=== PATIENT | female | born 1950 | race Caucasian/White ===

== ENCOUNTER 2022-04-18 21:28 | Emergency (ER) | payer MEDICARE, OTHER, SELFPAY ==
[2022-04-18 21:45] VITALS: BP 136/77; PULSE 71; RESP 18; TEMP 36.8; O2SAT 99; BMI 25.1
[2022-04-18] MEDS: COCAINE HCL 4 % 4 ML SOLUTION NOSTRIL-B (22:30)
[2022-04-18 23:36] VITALS: BP 128/78; PULSE 74; RESP 18; TEMP 36.8; O2SAT 99
[2022-04-18 23:37] VITALS: BP 128/78; PULSE 74; RESP 18; TEMP 36.8
--- NOTE | 2022-04-19 10:45 | ED_ITS ---
History of Present Illness General Chief Complaint: Epistaxis/Nosebleed Stated Complaint: nose bleed Time Seen by Provider: 04/18/22 21:47 History of Present Illness HPI Narrative: 71-year-old woman presenting to the emergency department with concern of nose bleed. She is accompanied by her spouse. She is not feeling lightheaded or nauseated. This is distressful as this is I believe about the 5th nosebleed she has had since [place]. Second today and just keeps coming. Apparently from the right naris but has bled from the left once she plugged the right. She has tried pressure with a nose clamp and does not seem to help. Denies trauma. Denies bleeding problems. She is not anticoagulated beyond aspirin. Also takes rosuvastatin. Sneezing apparently set her off and bleeding again. Related Data Home Medications Medication Instructions Recorded Confirmed aspirin 81 mg capsule 81 mg PO DAILY 04/18/22 04/18/22 rosuvastatin 10 mg tablet 10 mg PO HS 04/18/22 04/18/22 Allergies Allergy/AdvReac Type Severity Reaction Status Date / Time cephalexin [From Keflex] Allergy Mild Hives Verified 04/18/22 21:46 Review of Systems Status of ROS: Reports: 6 or more systems reviewed and unremarkable except as noted in History and below [facility] Medical History Hyperlipidemia Osteoporosis Surgical History History of section History of tonsillectomy and adenoidectomy Social History Smoking Status: Never smoker Second hand tobacco smoke exposure: No How often do you have a drink containing alcohol: never How often do you have six or more drinks on one occasion: Never AUDIT-C Alcohol total score: 0 Non-prescribed substance use: denies use Exam Narrative: Exam Narrative: Pleasant. Direct. Has bloodied cloths that is holding to her nose. Cranial nerves 2-12 look to be intact. She is breathing easily. There is no stridor. Neck is supple with trachea midline. Oropharynx with some trace blood in the far posterior oropharynx. Removal of dressings reveals bleeding from the right nares fairly briskly. Left does not appear to be the source of bleed. Heart is regular rate Appears well perfused peripherally. Const: Vital Signs, click to edit/add: Vital Signs - 24 hr 04/18/22 21:45 04/18/22 23:36 04/18/22 23:37 Temperature 98.2 F 98.2 F 98.2 F Pulse Rate [Right Pulse Oximeter] 71 74 74 Respiratory Rate 18 18 18 Blood Pressure [Ri ght Upper Arm] 136/77 128/78 128/78 Pulse Oximetry 99 99 Oxygen Delivery Me thod Room Air Room Air Documenting provider has reviewed patient's vital signs: yes Course Vital Signs Vital signs: Initial Vital Signs Temperature 98.2 F 04/18/22 21:45 Temperature Source Temporal Artery Scan 04/18/22 21:45 Pulse Rate 71 04/18/22 21:45 Respiratory Rate 18 04/18/22 21:45 Blood Pressure 136/77 04/18/22 21:45 Blood Pressure Mean 96 04/18/22 21:45 Blood Pressure Position Sitting 04/18/22 21:45 Pulse Oximetry 99 04/18/22 21:45 Oxygen Delivery Method 04/18/22 21:45 Vital Signs Temperature 98.2 F 04/18/22 21:45 Pulse Rate 71 04/18/22 21:45 Respiratory Rate 18 04/18/22 21:45 Blood Pressure 136/77 04/18/22 21:45 Pulse Oximetry 99 04/18/22 21:45 Oxygen Delivery Method 04/18/22 21:45 Temperature 98.2 F 04/18/22 23:37 Pulse Rate 74 04/18/22 23:37 Respiratory Rate 18 04/18/22 23:37 Blood Pressure 128/78 04/18/22 23:37 Pulse Oximetry 99 04/18/22 23:36 Oxygen Delivery Method 04/18/22 23:36 MDM - Epistaxis MDM Narrative Medical decision making narrative: I place 2 small cotton balls in the right nares and 1 in the left. Depart to collect supplies intended other matters. Later alerted to the fact that the right outermost cotton ball has dislodged. She then begins to bleed a little bit more in posterior oropharynx. I suspect still would be unable to obtain good visualization. Remove cotton balls and damp new ones in liquid cocaine. Placed as before. Reports that bleeding seems to have ?mostly? stopped. Is not demonstrating any active bleeding in the throat and removal of cotton balls does not reveal any active bleeding in the nares. There is in the right septum general evidence of some irritation more in the mid septum. In the anterior aspect along the septum is a small point of apparent vascular disruption. Heaped up. The left nares looks unremarkable. I apply silver nitrate stick to this vascularity in attempt at cautery. Looks to be settled well. Monitored for 15-20 minutes without further bleeding. Discharge Plan Discharge Clinical Impression: Epistaxis Patient Disposition: Home w/ Parent or Adult Condition: Improved Additional Instructions: After a couple of days might start placing white petroleum jelly as discussed. Stay well-hydrated. If recurs, go ahead and place cotton balls as done here and apply some pressure. Sometimes icing is helpful too. If can not get control in an hour, or if bleeding much more intensely, please return. Yes do try to avoid sneezing in the short term as discussed. Certainly avoid any trauma internal or otherwise, especially in the short term. Consider sleeping under the mist of a cool mist humidifier or otherwise generally increasing humidity in your home. Prescriptions: No Action rosuvastatin 10 mg tablet 10 mg PO HS Label Comments: TAKE 1 TABLET (10MG) BY MOUTH AT BEDTIME. aspirin 81 mg capsule 81 mg PO DAILY Follow Up/Referrals: Rehana Pandya MD [Primary Care Provider] - Stand Alone Forms: [facility] Info Instructions Procedures Epistaxis Control Time Out Performed: No Nostril: Yes right Nose prepped with: Yes cocaine 4% Direct inspection: Yes anterior source identified Direct inspection method: Yes otoscope Epistaxis treatment: Yes silver nitrate cautery Results of treatment: Yes bleeding controlled Estimated blood loss (if any): less than 5mls Complications: Yes none Conclusion: patient tolerated procedure
== END 2022-04-18 23:38 | disposition home or self-care (01) ==
PROVIDERS: Emergency Provider Family Medicine; PCP Family Medicine
DX: R04.0 Epistaxis (principal)
CPT/HCPCS: 30901; 99283; A9270

== ENCOUNTER 2023-03-30 08:10 | Outpatient (RCR) | payer MEDICARE, OTHER, SELFPAY | END 2023-04-27 11:38 | disposition home or self-care (01) | PROVIDERS: PCP Family Medicine; Visit Provider Family Medicine | DX: R42 Dizziness and giddiness (principal); R26.89 Other abnormalities of gait and mobility; M17.12 Unilateral primary osteoarthritis, left knee; M25.562 Pain in left knee; R26.2 Difficulty in walking, not elsewhere classified; F07.81 Postconcussional syndrome; Z51.89 Encounter for other specified aftercare | CPT/HCPCS: 97112; 97162 ==

== ENCOUNTER 2023-05-03 10:27 | Day surgery (SDC) | payer MEDICARE, OTHER, SELFPAY ==
[2023-05-03] VITALS (22 sets, daily range): BP systolic 83–126; BP diastolic 49–73; PULSE 57–72; RESP 12–16; TEMP 36.3–36.6; O2SAT 93–99; BMI 27.4
--- OUTSIDE RECORDS SUMMARY | 2023-05-03 10:29 | XMS_ITS | Clinical Summary ---
Author Name Unknown Organization [employer] [facility] Address [place], [place] [address] Care Team Providers Care Spinner Fixer Name Role Phone Rehana Pandya MD Primary Care Provide r Allergies Active Allergy Reactions Criticality Noted Date Comments Cephalexin Hives Low 04/18/2022 Erythromycin Stomach Upset 08/10/2007 Dosage related. Cephalothin Hives 08/10/2007 Red rash Medications Medication Sig Dispensed Refills Start Date End Date Status SUDAFED 30 MG TAB take 2 tablets (60 mg) by oral route every 6 hours as needed 0 01/04/2008 Active TYLENOL EXTRA STRENGTH 500 MG TAB take 2 tablets (1,000 mg) by oral route every 6 hours as needed 0 01/04/2008 Active MULTIVITAMIN TABIndications:Routine general medical examination at a health care facility take 1 tablet by oral route once daily with food 1 0 01/28/2008 Active CITRACAL + D 315 MG-200 UNIT TAB 0 02/09/2009 Active cholecalciferol (VITAMIN D) 1,000 unit capsule Take 1 capsule by mouth once daily. 0 11/11/2009 Active glucosamine sulfate (GLUCOSAMINE) 500 mg Tab Take 1 tablet by mouth 3 times daily. 0 01/25/2011 Active lactase (LACTAID) 9,000 unit tab Take 1 Tablet (9,000 units) by mouth 4 times daily if needed (dairy sensitivity). 0 06/25/2021 Active diphenhydrAMINE (BENADRYL) 25 mg capsule Take 1 Capsule (25 mg) by mouth at bedtime if needed (for sleep). 0 06/25/2021 Active Coenzyme Q10 10 mg cap Take 1 Capsule (10 mg) by mouth once daily. 0 06/09/2022 Active rosuvastatin (CRESTOR) 10 mg tabletIndications:Hyper lipidemia, unspecified hyperlipidemia type Take 1 Tablet (10 mg) by mouth at bedtime. 90 Tablet 3 10/20/2022 Active Active Problems Problem Noted Date Diagnosed Date CAD in [place] artery 10/20/2022 Paroxysmal SVT (supraventricular tachycardia) Epistaxis 08/02/2022 08/02/2022 Primary osteoarthritis of right hip 06/17/2015 Osteoarthritis of left glenohumeral joint 2015 Left shoulder pain 04/09/2015 Rotator cuff syndrome of left shoulder 5 Subjective tinnitus 07/27/2010 Osteoporosis, unspecified 11/11/2009 Postmenopausal atrophic vaginitis 11/11/2009 Sensorineural hearing loss, bilateral 12/24/2007 Resolved Problems Problem Noted Date Diagnosed Date Resolved Date Adhesive capsulitis of left shoulder 03/03/2015 04/13/2015 Lumbosacral radiculopathy 03/03/2015 Encounters Date Type Department Care Team Description 04/26/2023 10:55 AM PLUMBING TECHNICIAN Preop Visit [facility] [address] [place] [address] Anshu Izaguirre MD Preoperative Exam (Left knee joint replacement - [facility] - Dr. Luis/05/03/2023) 04/26/2023 Travel 04/23/2023 Travel 03/30/2023 Medical Messaging [facility] [address] [place] [address] Rehana Pandya MD Follow up to recent office visit 03/28/2023 10:15 AM PLUMBING TECHNICIAN Ancillary Procedure [facility] [address] [place] [address] 03/28/2023 9:15 AM PLUMBING TECHNICIAN Office Visit [facility] [address] [place] [address] Rehana Pandya MD Toenail (Fungal infection left foot second toe); Coordination Problems (Balance is off. Has taken some classes. Bending over makes her dizzy.); Knee Pain/problem (Knees ache, when used a lot, Going up and down stairs harder.) 03/28/2023 Travel from Last 3 Months Immunizations Name Administration Dates Next Due AMB Influenza, IIV3 (Age >=3 years)(Flu Clinic Only) 01/21/2011,01/27/2010 AMB Influenza, IIV4 PF (=>6 mos Flulaval,Fluzone Fluarix)(Flu Clinic Only) 12/28/2017 Amb Influenza, Inact (High-d ose) (Flu Clinic Only) 01/27/2016 COVID-19 vaccine (Nanoference NTech 30mcg/0.3mL) 12YO+ BIVALENT PF, MDV 01/07/2022 COVID-19 vaccine (Cerahelix-Bio NTech 30mcg/0.3mL) PF, MDV 02/02/2021,06/30/2020,06/09/2020 HepA-HepB (Twinrix) 06/09/2022,10/02/2014 Influenza A (H1N1), Inactiva ganesh (Age >=3 Years) 04/13/2009 Influenza, High-dose Inactivated 02/03/2015,02/08 Influenza, High-dose Quadriv alent Inactivated 12/05/2022,02/08/2022,01/28/2021 Influenza, IIV3 (Age 6-35 mos) 01/21/2011,2009 Influenza, IIV3 (Age >=3 years) 12/21/19 12,04/13/2009,02/19/2008,02/24,02/06/2003 Influenza, IIV4 12/18/2012 Influenza, Inactivated AIIV4 (Age 65+ Years) Preserv Free 01/02/2020 Influenza, Inactivated IIV3 (Age 65+ Years) Preserv Free 01/28/2021,01/02/2019,12/29/2016 [place] Encephalitis 10/02/2014 Pneumococcal Poly,23-Valent (Pneumovax) 09/15/2016 Pneumococcal conj 13-Valent (Prevnar 13) 05/28/2014 RSV, Recombinant ADJ Reconst ituted (Arexvy 120MCG/0.5mL) 03/29/2023 Td (Age >=7 Years) 07/15/2005 Tdap 09/03/2013,07/15/2005 Typhoid (injectable) 06/09/2022,10/02/2014 Zoster (Shingrix-RZV, recombinant) 09/18/2018, Zoster (Zostavax-ZVL, live) 07/18/2013 Family History Medical History Relation Name Comments Heart Disease Father OR in 80s Stroke Maternal Grandmother Cancer-breast Mother Stage 3 invasi ve breast CA, 72 Heart Disease Mother OR in 80s Other Mother Cancer-breast Other maternal great grandmother Heart Disease Paternal Grandmother Hypertension Paternal Grandmother Cancer-colon No Family History Relation Name Status Comments Father Alive Maternal Grandmother (Age 94) Mother Alive Other Paternal Grandmother (Age 71) OR Social History Tobacco Use Types Packs/Day Years Used Date Smoking Tobacco: Never Smokeless Tobacco: Never Tobacco Cessation:Counseling Given: Yes Alcohol Use Standard Drinks/Week Comments No 0 (1 standard drink = 0.6 oz pur e alcohol) PHQ-2 Answer Date Recorded PHQ-2 TOTAL SCORE 0 10/20/2022 Social Connections Answer Date Recorded Frequency of Communication with Friends and Fami ly 0 03/28/2023 Financial Resource Strain Answer Date R ecorded Difficulty of Paying Living Expenses 3 03/28/2023 Difficulty of Paying Living Expenses Not on file 03/28/2023 Food Insecurity Answer Date Recorded Worried About Running Out of Food in the Last Ye ar 1 03/28/2023 Transportation Needs Answer Date Record ed Lack of Transportation (Medical) 1 03/28/2023 Housing Stability Answer Date Recorded Unable to Pay for Housing in the Last Year 1 03/28/2023 Sex and Gender Information Value Date Recorded Sex Assigned at Not on file Gender Identity Not on file Sexual Orientation Not on file Obstetrics History Para Term AB IAB SAB Ectopic Multiple Livin g Live Births 1 1 2 Date Outcome GA Total Labor Labor/2nd/3rd Weight Sex Delivery Anes PTL Rashmi A1 A5 Name Cl in Para Last Filed Vital Signs Vital Sign Reading Time Taken Comments Blood Pressure 116/66 04/26/2023 11:05 AM PLUMBING TECHNICIAN Pulse 71 04/26/2023 11:05 AM PLUMBING TECHNICIAN Temperature 36.7 ??C (98 ??F) 04/26/2023 11: 05 AM PLUMBING TECHNICIAN Respiratory Rate 12 02/28/2011 9:31 AM PLUMBING TECHNICIAN Oxygen Saturation 97% 04/26/2023 11: 05 AM PLUMBING TECHNICIAN Inhaled Oxygen Concentration - - Weight 78.4 kg (172 lb 14.4 oz) 024 11:05 AM PLUMBING TECHNICIAN Height 169.5 cm (5' 6.75) 03/28/2023 9:16 AM CS T Body Mass Index 27.28 03/28/2023 9:16 AM PLUMBING TECHNICIAN Plan of Treatment Upcoming Encounters Date Type Department Care Team (Late st Contact Info) Description 10/18/2023 9:00 AM CDT Office Visit [facility] [address] [place] [address] Ed Kaminski DPM [address] [place] [address] Health Maintenance Due Date Last Done Comments Colonoscopy through age 75 1993 Tetanus booster 09/04/2023 09/03/2013, 10/2005, 07/15/2005 Medicare Wellness for age 65+ 10/20/2023 10/20/2022, 10/05/2021, 09/04/2020 Depression screening for age 12+ 10/21/2023 10/20/2022, 10/20/2022, 10/05/2021, Additional history exists Mammogram for age 45-75 10/21/2023 10/21/19 23, 10/05/2021, 09/04/2020, Additional history exists Influenza for age 65+ 12/10/2023 12/05/2022 , 02/08/2022, 01/28/2021, Additional history exists Postponed from 12/09/2022 (Other) BMI (ht and wt on same day) for age 18+ 03/28/2024 03/28/2023, 04/21/2022, 01/03/2022, Additional history exists Lipids for age 45-75 10/21/2027 10/20/2022, 12/27/2021, 06/25/2021, Additional history exists Tdap Completed 09/03/2013, 07/15/2005 DEXA/DXA scan for age 65+ Completed 2014, 08/02/2011, 11/12/2009, Additional history exists Pneumococcal series for age 65+ Completed 09/15/2016, 05/28/2014 Zoster (shingles) series for age 50+ Completed 09/18/2018, 06/22/2018, 07/18/2013 Hepatitis C screening for age 18-79 Completed 10/20/2022 COVID-19 vaccine series Completed 04/13/19 24, 11/17/2022, 01/07/2022, Additional history exists Procedures Procedure Name Priority Date/Time Associated Diagnosis Comments XR KNEE 3 VIEWS LEFT Routine 03/28/2023 10:24 AM PLUMBING TECHNICIAN Chronic pain of left knee from Last 3 Months Results * XR KNEE 3 VIEWS LEFT (03/28/2023 10:24 AM PLUMBING TECHNICIAN) Anatomical Region Laterality Modality KNEES, KNEE L Computed Radiogr aphy 03/28/2023 10:4 0 AM PLUMBING TECHNICIAN Impressions 03/28/2023 10:40 AM PLUMBING TECHNICIAN Degenerative arthritis left knee predominantly the lateral and patellofemoral compartments. Dictated by Rock Smith MD @ Mar 28 2023 10:40AM (Electronically Signed) ?? Narrative 03/28/2023 10:40 AM PLUMBING TECHNICIAN For Patients: ??As a result of the Century Cures Act, medical imaging exams and procedure reports are released immediately into your electronic medical record. ??You may view this report before your referring provider. ??If you have questions, please contact your health care provider. INDICATION: Chronic left knee pain. TECHNIQUE: Three views of the left knee. COMPARISON: None. FINDINGS: Marked narrowing near [id number] lateral compartment left knee with hypertrophic spurring. The medial compartment is fairly well preserved. Mild to moderate narrowing and spurring of the left patellofemoral compartment. No fracture, dislocation, erosion, or effusion. Procedure Note Rock Smith MD - 03/28/2023 For Patients: As a result of the Century Cures Act, medical imagingexams and procedure reports are released immediately into your electronicmedical record. You may view this report before your referring provider.If you have questions, please contact your health care provider. INDICATION: Chronic left knee pain. TECHNIQUE: Three views of the left knee. COMPARISON: None. FINDINGS: Marked narrowing near [id number] lateral compartment left knee withhypertrophic spurring. The medial compartment is fairly well preserved.Mild to moderate narrowing and spurring of the left patellofemoralcompartment. No fracture, dislocation, erosion, or effusion. IMPRESSION: Degenerative arthritis left knee predominantly the lateral andpatellofemoral compartments. Dictated by Rock Smith MD @ Mar 28 2023 10:40AM (Electronically Signed) Rehana Pandya MD GENERAL IMAGI NG from Last 3 Months Care Teams Spinner Fixer Relationship Specialty Start Date End Date Rehana Pandya MD [address] [place] [address] PCP - General Family Practice 03/03/15
[2023-05-03] MEDS: OXYCODONE (CR) 10 MG TAB.ER.12H PO (11:10)
[2023-05-03] MEDS: ACETAMINOPHEN 500 MG TABLET 1000 MG PO ×3 (11:10→23:05)
[2023-05-03] MEDS: SODIUM CHLORIDE 0.9 % (FLUSH) 10 ML SYRINGE IVF (11:12)
[2023-05-03] MEDS: LACTATED RINGERS 1000 ML 1,000 ML 100 ML IV (11:12)
--- NOTE | 2023-05-03 11:35 | W.PM.H&PU ---
History & Physical Update History & Physical Update H&P Reviewed and patient assessed: No changes noted
--- NOTE | 2023-05-03 11:38 | CRLHL7_ITS ---
For Patients: As a result of the Cures Act, medical imaging exams and procedure reports are released immediately into your electronic medical record. You may view this report before your referring provider. If you have questions, please contact your health care provider. Indication: POST OP Technique: Two views left knee Findings/Impression: Hardware from a left total knee arthroplasty is in satisfactory position. Bone alignment is normal. No sign of acute fracture. Postop changes are within normal limits. Dictated by Brody Sutton MD @ 05/03/2023 3:57:49 PM (Electronically Signed)
[2023-05-03] MEDS: fentaNYL 100 MCG/2 ML inj IVP (12:26)
[2023-05-03] MEDS: MIDAZOLAM HCL 1 MG/ML inj IVP (12:26)
--- NOTE | 2023-05-03 12:35 | SUR.PREOP ---
TIME?OUT:?1226 PT/RN/MDA?VERIFICATION?OF?SURGICAL?SITE,?PROCEDURE,?AND?CONSENT OBTAINED?PRIOR?TO?INVASIVE?PROCEDURE.
--- NOTE | 2023-05-03 12:39 | W.ANESCHARGE ---
Anesthesia Charges Start Date/Time Anesthesia Start Date: 05/03/23 Anesthesia Start Time: 12:40 Stop Date/Time Anesthesia Stop Date: 05/03/23 Anesthesia Stop Time: 14:39 Summary Extremes of Age - Over 70 or under 1: MDA
--- NOTE | 2023-05-03 12:40 | P.NB_ITS ---
Nerve Block Nerve Block Time Seen by Provider: 12:32 Date Seen: 05/03/23 Type of block requested by surgeon for post-operative analgesia: adductor canal Side: left Time out performed: Yes Verification of patient name: Yes Verification of date of : Yes Site marking: site marked Name of person performing procedure: Marck Continuous monitoring Was continuous monitoring of O2 sat, B/P, irish moss bleacher, recorded every 15 minutes?: Yes Procedure Checklist: sterile prep, needles and gloves Ultrasound guided. Images saved: Yes Medications given in 5ml increments after negative aspiration: Ropivicaine %: 0.5 mL: 20 Needle gauge: 20 Decadron (mg): 10 Precedex (mcg): 25 Patient tolerated procedure well: Yes Additional comments: Needle noted adjacent to nerve Block Charges Block Charge (with Pro Fee): Femoral Nerve Use of Ultrasound Machine for Block: Yes- US Guidance/pain block
--- NOTE | 2023-05-03 12:40 | P.NB_ITS ---
Nerve Block Nerve Block Time Seen by Provider: 12:32 Date Seen: 05/03/23 Type of block requested by surgeon for post-operative analgesia: geniculars Side: left Time out performed: Yes Verification of patient name: Yes Verification of date of : Yes Site marking: site marked Name of person performing procedure: Marck Continuous monitoring Was continuous monitoring of O2 sat, B/P, color television console monitor, recorded every 15 minutes?: Yes Procedure Checklist: sterile prep, needles and gloves Medications given in 5ml increments after negative aspiration: Ropivicaine %: 0.5 mL: 9 Needle gauge: 25 Patient tolerated procedure well: Yes Block Charges Block Charge (with Pro Fee): Genicular Nerve Block Use of Ultrasound Machine for Block: No
--- NOTE | 2023-05-03 14:01 | PM.ORPRC ---
Procedure Note Date of procedure: 05/03/23 Procedure: PREOPERATIVE DIAGNOSIS: 1. Left knee osteoarthritis, primary, severe POSTOPERATIVE DIAGNOSIS: 1. Left knee osteoarthritis, primary, severe PROCEDURE: 1. Left total knee arthroplasty SURGEON: Kemal Naranjo MD. ASSISTANT EXECUTIVE HOUSEKEEPER: BALJINDER Tineo - Of note, a skilled human services assistant was critical for this case to aid in patient positioning, tissue retraction, limb manipulation/positioning, and closure. ANESTHESIA: Spinal anesthetic EBL: 50ml IMPLANTS: DePuy J&J all cemented TKA - Attune PS femur size 6 narrow, size 5 tibia, 5 poly spacer, 35 mm patella TOURNIQUET: 80 minutes at 300 torr COMPLICATIONS: None evident INDICATIONS: The patient is a pleasant 72-year-old female who has experienced severe left knee pain and difficulty bearing weight. Workup included x-rays which revealed severe osteoarthrosis in the knee. Given the deformity, the dysfunction, and the pain, as well as the failure of nonoperative management, recommendation was made for surgery. FINDINGS: Full-thickness chondral loss diffusely throughout the lateral compartment and patellofemoral compartment. To a lesser degree medial compartment chondromalacia. Pathologic lateral meniscus. To lesser degree the medial meniscus. Moderate effusion upon entering the joint. Resting valgus position, but intact MCL. DESCRIPTION OF PROCEDURE: Following a thorough discussion of risks, benefits, and alternatives consent was obtained and the left knee was marked. The patient was brought to the operating room and placed supine on the operating table. Induction of anesthesia was undertaken. 1,250 mg IV vancomycin and 1 g tranexamic acid was administered within 1 hr of incision preoperatively. Proper time-out was performed identifying proper patient, site, procedure. The operative extremity was prepped and draped in the appropriate sterile fashion using ChloraPrep after the patient was positioned supine with all bony prominences well padded. A longitudinal, anterior, midline skin incision was made starting approximately 3cm proximal to the superior pole of the patella and advanced distal to the tibial tubercle. A median parapatellar arthrotomy was created. A medial subperiosteal sleeve was created with knife, ruggiero elevator and curved osteotome. The retropatellar fatpad was resected and the synovium in the suprapatellar pouch excised to visualize the anterior femoral cortex. Femoral preparation was performed via an intramedullary guide. Step drill allowed access into the femoral canal. The distal cutting guide was placed with 6 ? of valgus and 11 mm cut on the distal femur. Femur was sized using a posterior referencing guide in addition to the trans epicondylar axis and Whitesides line for reference. Ultimately, the femur was cut in 3? of external rotation. This found have a best fit with the sizing noted above. The 4 in 1 cutting block was then placed, and the distal femur shaped accordingly. The box cut was then created and the trial implant inserted to confirm appropriate fit. We turned our attention to the proximal tibia. Extramedullary guide was utilized for cutting with the goal of being 90 degree cut from the mechanical axis of the tibia in the varus/valgus plane utilizing tibial crest as the primary alignment. Initially a 3 mm resection was performed from the medial tibial plateau. Ultimately, balancing was achieved in both flexion and extension in both varus and valgus. The knee was able to achieve full extension as well comfortably. The patella was initially measured and found have a thickness of 21 mm. It was resected back to approximately 14 mm. It was sized to be a best fit with as noted above. This was drilled, trial placed. All trials were placed and found to have an excellent stability and balance. At this stage, trial implants were removed, the knee was thoroughly irrigated with normal saline, and the cement was mixed. After irrigation, the knee was thoroughly dried, and cement placed, with the real tibial and femoral implants placed along with the patella. Trial poly spacer was placed and confirmed to have excellent range of motion and full extension, and the real poly spacer opened and inserted. All extra cement was removed, and a 3 min Betadine soak performed. Finally, a final irrigation round with normal saline was performed. Closure performed with 0 PDS and #0 Stratafix for the quad tendon/retinaculum. 2-0 Vicryl/Stratafix for the subcutaneous and 4-0 Monocryl for subcuticular closure. Dressings were applied and the patient was awoken from anesthesia after the tourniquet deflated and transferred the PACU in stable condition. A skilled human services assistant was critical for this case to aid in patient positioning, tissue retraction, bone exposure, limb manipulation/positioning, patient safety, and closure. PLAN: 1. Weight bear as tolerated operative extremity. 2. 23 hr perioperative antibiotics. 3. Ice. 4. PT/OT consults for ambulation assistance/mobility education. 5. Social work consult for discharge planning. 6. DVT prophylaxis with at SCDs, Dean Hose, and aspirin twice daily.
[2023-05-03] MEDS: ePHEDrine sulfate 5 MG/ML inj IVP ×2 (14:37→14:45)
--- NOTE | 2023-05-03 14:45 | W.ANESCHARGE ---
Anesthesia Charges Start Date/Time Anesthesia Start Date: 05/03/23 Anesthesia Start Time: 12:40 Stop Date/Time Anesthesia Stop Date: 05/03/23 Anesthesia Stop Time: 14:39
[2023-05-03] MEDS: PHENYLEPHRINE 100 MCG/ML SYRINGE IVP (14:51)
[2023-05-03] MEDS: LACTATED RINGERS 1000 ML 1,000 ML 250 ML IV ×2 (15:05→16:12)
--- NOTE | 2023-05-03 16:14 | PM.IMCN1 ---
Date of Consult Patient: Alan Patient Consult date: 05/03/23 Requesting Physician: Orthopedics Primary Care Provider: Rehana Pandya MD Consult Narrative Reason for consult: CAD, paroxysmal SVT Narrative: Breanna Mccloud is a 72 year old female with a h/o CAD and hyperlipidemia who underwent an elective LTKA today by Dr. Naranjo. Her , Saul, and daughter, Neha, are here with her. They are all pleased with how alert and sharp she is this time because they tell me that she had low blood pressures and confusion after her hip surgery. Malena is just starting to feel some heaviness in her left knee. She denies CP or SOB. Review of Systems Status of ROS: Reports: 6 or more systems reviewed and unremarkable except as noted in History and below PFSH [facility] Medical History (Updated 05/03/23 @ 16:22 by Carolee Jiang MD) Paroxysmal SVT (supraventricular tachycardia) ?I47.10 - Supraventricular tachycardia, unspecified (ICD-10) CAD in [place] artery ?I25.10 - Atherosclerotic heart disease of [place] coronary artery without angina pectoris (ICD-10) Primary osteoarthritis of right hip ?M16.11 - Unilateral primary osteoarthritis, right hip (ICD-10) Osteoarthritis of left glenohumeral joint ?M19.012 - Primary osteoarthritis, left shoulder (ICD-10) Rotator cuff syndrome of left shoulder ?M75.102 - Unspecified rotator cuff tear or rupture of left shoulder, not specified as traumatic (ICD-10) Subjective tinnitus ?H93.19 - Tinnitus, unspecified ear (ICD-10) Postmenopausal atrophic vaginitis ?N95.2 - Postmenopausal atrophic vaginitis (ICD-10) Sensorineural hearing loss (SNHL) of both ears ?H90.3 - Sensorineural hearing loss, bilateral (ICD-10) Hyperlipidemia ?E78.5 - Hyperlipidemia, unspecified (ICD-10) Osteoporosis ?M81.0 - Age-related osteoporosis without current pathological fracture (ICD-10) Surgical History (Updated 05/03/23 @ 16:19 by Carolee Jiang MD) S/P total knee arthroplasty ?Z96.659 - Presence of unspecified artificial knee joint (ICD-10) 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) ?Z96.641 - Presence of right artificial hip joint (ICD-10) History of tonsillectomy and adenoidectomy ?Z90.89 - Acquired absence of other organs (ICD-10) History of section ?Z98.891 - History of uterine scar from previous surgery (ICD-10) Family History (Updated 05/03/23 @ 16:21 by Carolee Jiang MD) Mother Breast cancer, Onset Age: 72 Myocardial infarction, Onset Age: 80 Father Myocardial infarction, Onset Age: 80 Paternal Grandmother Coronary artery disease Maternal Grandmother Stroke Social History (Updated 05/03/23 @ 16:21 by Carolee Jiang MD) Narrative: Never smoker, denies EtOH use What is your current living situation?: I presently have a place to live Problems where you live: no known problems In the past 12 months, utilities in danger of being shut off: no In past 12 months, lack of transportation kept you from medical appts, meetings, work, or getting things needed for daily living: no In the past 12 mos, have been you worried that your food would run out before you had money to buy more?: never true In the past 12 mos, the food you bought just didn't last and you didn't have money to buy more?: never true Highest level of school completed/degree received: Master's degree Smoking Status: Never smoker Do you use any of these nicotine containing products: None Second hand tobacco smoke exposure: No How often do you have a drink containing alcohol: monthly or less Alcohol type: wine How many standard drinks containing alcohol do you have on a typical day: 1 or 2 How often do you have six or more drinks on one occasion: Never AUDIT-C Alcohol total score: 1 Non-prescribed substance use: denies use Caffeine: Yes (coffee, tea, pepsi minimal) How often does anyone, including family, friends and others, physically hurt you: never How often does anyone, including family, friends and others, insult or talk down to you: never How often does anyone, including family, friends and others, threaten you with harm: never How often does anyone, including family, friends and others, scream or curse at you: never service: No Meds Home Medications and Allergies Home Medications Medication Instructions Recorded Confirmed Type rosuvastatin 10 mg tablet 10 mg PO HS 04/18/22 05/01/23 History calcium citrate 250 mg PO TID 01/30/23 05/03/23 History cholecalciferol (vitamin D3) 25 25 mcg PO DAILY 01/30/23 05/02/23 History mcg (1,000 unit) capsule coenzyme Q10 100 mg capsule 100 mg PO DAILY 01/30/23 05/03/23 History (CoQ-10) glucosamine HCl 500 mg tablet 500 mg PO DAILY 01/30/23 05/02/23 History lactase 3,000 unit tablet (Dairy 3,000 unit PO QID PRN 01/30/23 05/03/23 History Relief) acetaminophen 500 mg tablet 1,000 mg PO Q6H PRN 05/01/23 05/02/23 History multivitamin (Daily Multi-Vitamin 1 tab PO DAILY 05/03/23 05/03/23 History tablet) Allergies Allergy/AdvReac Type Severity Reaction Status Date / Time cephalothin Allergy Intermediate Hives Verified 04/11/23 09:15 cephalexin [From Keflex] Allergy Mild Hives Verified 04/11/23 09:15 erythromycin base Allergy Mild GI upset Verified 04/11/23 09:15 Exam Narrative: Exam Narrative: General: No acute distress. Awake alert oriented x3. HEENT: Normocephalic atraumatic, pupils equally round and reactive to light and accommodation. Oropharynx clear. Mucous membranes are moist. No cervical lymphadenopathy, thyromegaly or carotid bruits. No JVD. Cardiovascular: Regular rate and rhythm. No murmurs, gallops, or rubs. Chest: No increased work of breathing. Clear to auscultation bilaterally. No crackles or wheezes. Abdomen: Bowel sounds present. Soft, nondistended, nontender. No hepatosplenomegaly or masses. Extremities: Left knee bandage is clean, dry, and intact. No edema, no cyanosis or clubbing. Skin: No jaundice, no pallor, no rashes. Const: Vital Signs, click to edit/add: Vital Signs - 24 hr 05/03/23 10:42 05/03/23 12:26 05/03/23 12:30 Temperature 97.7 F Pulse Rate 66 65 62 Pulse Rate [Left P ulse Oximeter] Respiratory Rate 16 16 16 Blood Pressure 126/60 124/57 L 114/60 Blood Pressure [Ri ght Arm] Pulse Oximetry 96 97 94 Oxygen Delivery Me thod Room Air Nasal Cannula Nasal Cannula Oxygen Flow Rate 2 2 05/03/23 12:35 05/03/23 14:35 05/03/23 14:40 Temperature 97.5 F L Pulse Rate 64 68 68 Pulse Rate [Left P ulse Oximeter] Respiratory Rate 16 12 14 Blood Pressure 110/58 L 83/49 L 90/51 L Blood Pressure [Ri ght Arm] Pulse Oximetry 97 95 96 Oxygen Delivery Me thod Nasal Cannula Room Air Room Air Oxygen Flow Rate 2 05/03/23 14:45 05/03/23 14:50 05/03/23 14:55 Temperature 97.4 F L Pulse Rate 72 71 68 Pulse Rate [Left P ulse Oximeter] Respiratory Rate 14 14 12 Blood Pressure 91/52 L 91/50 L 88/60 L Blood Pressure [Ri ght Arm] Pulse Oximetry 94 94 95 Oxygen Delivery Me thod Room Air Room Air Room Air Oxygen Flow Rate 05/03/23 15:00 05/03/23 15:05 05/03/23 15:10 Temperature 97.4 F L Pulse Rate 66 64 68 Pulse Rate [Left P ulse Oximeter] Respiratory Rate 14 14 16 Blood Pressure 114/73 117/62 112/58 L Blood Pressure [Ri ght Arm] Pulse Oximetry 96 95 93 Oxygen Delivery Me thod Room Air Room Air Room Air Oxygen Flow Rate 05/03/23 15:15 05/03/23 15:23 05/03/23 15:30 Temperature 97.3 F L 97.4 F L 97.4 F L Pulse Rate 65 66 Pulse Rate [Left P ulse Oximeter] 63 Respiratory Rate 16 12 12 Blood Pressure 107/60 Blood Pressure [Ri ght Arm] 108/64 113/64 Pulse Oximetry 95 95 Oxygen Delivery Me thod Room Air Room Air Room Air Oxygen Flow Rate 05/03/23 15:45 05/03/23 15:51 Temperature 97.3 F L Pulse Rate Pulse Rate [Left P ulse Oximeter] 64 Respiratory Rate 14 Blood Pressure Blood Pressure [Ri ght Arm] 111/61 Pulse Oximetry 96 95 Oxygen Delivery Me thod Room Air Oxygen Flow Rate Assessment and Plan Assessment and plan (1) S/P total knee arthroplasty: Problem comment: left, Dr. Naranjo Status: Acute (2) Osteoarthritis of left knee: Problem comment: severe with 15 degree valgus Status: Acute (3) Hyperlipidemia: Status: Chronic (4) CAD in [place] artery: Problem comment: Stable, asymptomatic Status: Chronic Plan 72 year old female with a h/o CAD and hyperlipidemia who underwent an elective LTKA today by Dr. Naranjo. Routine post op cares. Continue home meds. BID low dose aspirin for a month for VTE prophylaxis.
[2023-05-03] MEDS: OXYCODONE 5 MG TABLET PO ×4 (17:05→23:06)
--- NOTE | 2023-05-03 19:16 | PC.NURSE ---
End of Shift: Patient pleasant and cooperative. Patient vitally stable, lungs clear, BS WNL, IV SL. Patient 1 assist, walker, gb. Patient rates pain at most 4-5/10, oxy 5 mg given x2. Patient tolerating regular diet. Patient ambulated to toilet urinating 500ml. Patient left knee dressing C/D/I.
[2023-05-03] MEDS: SENNOSIDES 1 TAB TABLET 2 TAB PO (20:50)
[2023-05-03] MEDS: CALCIUM CARBONATE 500 MG TABLET 250 MG PO (20:50)
[2023-05-03] MEDS: ROSUVASTATIN CALCIUM 10 MG TABLET PO (20:51)
[2023-05-03] MEDS: ASPIRIN 81 MG TABLET EC PO (20:51)
[2023-05-03] MEDS: ONDANSETRON 2 MG/ML inj 4 MG IVP (23:38)
[2023-05-04 03:00] VITALS: BP 102/60; PULSE 75; RESP 18; TEMP 37.2; O2SAT 96
[2023-05-04] MEDS: ACETAMINOPHEN 500 MG TABLET 1000 MG PO (05:36)
--- NOTE | 2023-05-04 06:28 | PC.NURSE ---
End of shift report [id number]: Alert and oriented x 4. Pain to left knee well managed with current scheduled and PRN medications as well as cryocuff. Transferring independently, ambulates with SBA with gait belt and walker. Patient tolerating ambulation well. Nausea reported at 2330, PRN ondansetron administered with patient reported relief. Dressing to left knee CDI, non pitting edema noted to knee. CMS intact.
[2023-05-04 06:50] LABS: Basophils Absolute Auto 0.01 K/uL (0.00-0.30); Basophils Percent Auto 0.2 % (0.0-3.0); Hematocrit 35.3 % (33.0-51.0); Hemoglobin* 11.7 gm/dL (12.0-16.0); Immature Granulocytes Abs Auto 0.01 K/uL (0.00-0.30); Immature Granulocytes Pct Auto 0.2 %; Lymphocytes Percent Auto 14.3 % (20-44); Mean Corpuscular HGB Conc 33 gm/dL (32-36); Mean Corpuscular Hemoglobin 32 pg (26-34); Mean Corpuscular Volume 98 fL (80-100); Neutrophils Percent Auto 76.3 % (42.0-72.0); Platelet Count* 252 K/uL (140-440); RDW Coefficient of Variation % 12.3 % (11.5-15.5); Red Blood Count 3.62 m/uL (4.00-5.20); White Blood Count* 6.52 K/uL (4.50-11.00)
[2023-05-04 06:52] LABS: Slide Review Reflex No
[2023-05-04 07:14] LABS: Potassium* 4.7 mmol/L (3.6-5.1); Sodium* 128 mmol/L (135-149)
[2023-05-04 07:17] LABS: Creatinine* 0.4 mg/dL (0.5-1.5); Estimated Glomerular Filt Rate 104 ml/min
[2023-05-04 07:18] LABS: Blood Urea Nitrogen* 11 mg/dL (7-30)
[2023-05-04] MEDS: CALCIUM CARBONATE 500 MG TABLET 250 MG PO (08:08)
[2023-05-04] MEDS: MULTIVITAMIN/MINERALS 1 TABLET 1 TAB PO (08:08)
[2023-05-04] MEDS: GLUCOSAMINE SULFATE 500 MG CAPSULE PO (08:08)
[2023-05-04] MEDS: OXYCODONE 5 MG TABLET PO (08:09)
[2023-05-04] MEDS: ASPIRIN 81 MG TABLET EC PO (08:09)
[2023-05-04] MEDS: SENNOSIDES 1 TAB TABLET 2 TAB PO (08:09)
[2023-05-04 08:13] VITALS: BP 106/51; PULSE 72; RESP 18; TEMP 36.9; O2SAT 100
--- NOTE | 2023-05-04 10:13 | PM.ORPN ---
Subjective Subjective Date Seen: 05/04/23 Principal diagnosis: Status postop day 1 left total knee arthroplasty Interval history: Patient reports doing well. No acute events over night. Pain managed with scheduled and PRN medications, ice. DVT prophylaxis: 81 mg aspirin by mouth twice daily, bilateral knee high Dean stockings, SCDs, walking. Denies fevers, chills, aches, N/V, CP, SOB/CHEATHAM, or lightheadedness. Ortho Exam Narrative Exam Narrative: -Patient appears comfortable; no apparent acute distress -Alert and oriented times 3 -Operative knee mildly swollen; soft tissues supple; no ecchymosis; no erythematous streaking Warmth appropriate -Surgical dressing clean, dry, intact; no drainage -Bilateral calfs soft; no significant swelling, edema, tenderness, erythema, discoloration, warmth, or palpable cords -2+ DP/PT pulses, intact dermatomes and myotomes distally (5/5 strength) Const Vital Signs, click to edit/add: Vital Signs - 24 hr 05/03/23 10:42 05/03/23 12:26 05/03/23 12:30 Temperature 97.7 F Pulse Rate 66 65 62 Pulse Rate [Left Pulse Oximeter] Respiratory Rate 16 16 16 Blood Pressure 126/60 124/57 L 114/60 Blood Pressure [Right Arm] Pulse Oximetry 96 97 94 Oxygen Delivery Method Room Air Nasal Cannula Nasal Cannula Oxygen Flow Rate 2 2 05/03/23 12:35 05/03/23 14:35 05/03/23 14:40 Temperature 97.5 F L Pulse Rate 64 68 68 Pulse Rate [Left Pulse Oximeter] Respiratory Rate 16 12 14 Blood Pressure 110/58 L 83/49 L 90/51 L Blood Pressure [Right Arm] Pulse Oximetry 97 95 96 Oxygen Delivery Method Nasal Cannula Room Air Room Air Oxygen Flow Rate 2 05/03/23 14:45 05/03/23 14:50 05/03/23 14:55 Temperature 97.4 F L Pulse Rate 72 71 68 Pulse Rate [Left Pulse Oximeter] Respiratory Rate 14 14 12 Blood Pressure 91/52 L 91/50 L 88/60 L Blood Pressure [Right Arm] Pulse Oximetry 94 94 95 Oxygen Delivery Method Room Air Room Air Room Air Oxygen Flow Rate 05/03/23 15:00 05/03/23 15:05 05/03/23 15:10 Temperature 97.4 F L Pulse Rate 66 64 68 Pulse Rate [Left Pulse Oximeter] Respiratory Rate 14 14 16 Blood Pressure 114/73 117/62 112/58 L Blood Pressure [Right Arm] Pulse Oximetry 96 95 93 Oxygen Delivery Method Room Air Room Air Room Air Oxygen Flow Rate 05/03/23 15:15 05/03/23 15:23 05/03/23 15:30 Temperature 97.3 F L 97.4 F L 97.4 F L Pulse Rate 65 66 Pulse Rate [Left Pulse Oximeter] 63 Respiratory Rate 16 12 12 Blood Pressure 107/60 Blood Pressure [Right Arm] 108/64 113/64 Pulse Oximetry 95 95 Oxygen Delivery Method Room Air Room Air Room Air Oxygen Flow Rate 05/03/23 15:45 05/03/23 15:51 05/03/23 16:00 Temperature 97.3 F L 97.8 F Pulse Rate Pulse Rate [Left Pulse Oximeter] 64 62 Respiratory Rate 14 14 Blood Pressure Blood Pressure [Right Arm] 111/61 110/66 Pulse Oximetry 96 95 96 Oxygen Delivery Method Room Air Room Air Oxygen Flow Rate 05/03/23 16:15 05/03/23 17:45 05/03/23 18:15 Temperature 97.3 F L 97.8 F 97.8 F Pulse Rate Pulse Rate [Left Pulse Oximeter] 61 57 L 61 Respiratory Rate 14 14 14 Blood Pressure Blood Pressure [Right Arm] 108/65 109/63 118/62 Pulse Oximetry 97 98 99 Oxygen Delivery Method Room Air Room Air Room Air Oxygen Flow Rate 2 05/03/23 23:00 05/03/23 23:00 05/03/23 23:00 Temperature 97.3 F L Pulse Rate Pulse Rate [Left Pulse Oximeter] 66 66 Respiratory Rate 16 16 Blood Pressure Blood Pressure [Right Arm] 107/67 Pulse Oximetry 98 98 Oxygen Delivery Method Room Air Oxygen Flow Rate 05/04/23 03:00 05/04/23 08:13 05/04/23 08:13 Temperature 98.9 F Pulse Rate Pulse Rate [Left Pulse Oximeter] 75 72 Respiratory Rate 18 18 Blood Pressure Blood Pressure [Right Arm] 102/60 Pulse Oximetry 96 100 Oxygen Delivery Method Room Air Oxygen Flow Rate 05/04/23 08:13 Temperature 98.5 F Pulse Rate Pulse Rate [Left Pulse Oximeter] 72 Respiratory Rate 18 Blood Pressure Blood Pressure [Right Arm] 106/51 L Pulse Oximetry 100 Oxygen Delivery Method Room Air Oxygen Flow Rate Assessment and Plan Assessment and plan (1) S/P total knee arthroplasty: Problem details: left, Dr. Naranjo (05/03/23) Status: Acute (2) Osteoarthritis of left knee: Problem details: severe with 15 degree valgus Status: Acute (3) Hyperlipidemia: Status: Chronic (4) CAD in [place] artery: Problem details: Stable, asymptomatic Status: Chronic Plan - Complete 23 hour perioperative antibiotics. - PT/OT consult for education and assistance. - Social work consult for discharge planning - Prescribed analgesics as needed - DVT prophylaxis: 81 mg aspirin by mouth twice daily, bilateral knee high Dean Hose stockings and SCDs - Anticipation is for discharge to home with spouse and family 05/04/2023 if the patient remains medically stable, pain is controlled, and they are safe with mobilization.
--- NOTE | 2023-05-04 11:26 | PC.NURSE ---
Nursing Care Hours: [id number] Pt this shift alert and oriented, calm and cooperative with cares. Pain controlled per eMAR. Bandage CDI, CMS intact. VSS. C/o feeling light headed and dizzy. This is a known intermittent problem, brought on by position changes. Shade Maker verbally recommended follow up with primary or ENT. IV removed. Discharge instructions went over with pt and family. All questions and concerns addressed. Pt questioned celecoxib order. Pt has history of side effects with Ibuprofen, also stated pt was taken off daily aspirin d/t frequent bloody nose. Discussed with Alan MULLINS over phone, DC celecoxib order, continue aspirin and use Tylenol for pain relief. Shade Maker recommended pt call primary if excessive bloody nose begins. Wheeled out to vehicle in stable condition.
== END 2023-05-04 10:56 | disposition home or self-care (01) ==
LOC: OR 10:28 → MEDSURG 10:30
PROVIDERS: PCP Family Medicine; Visit Provider Orthopaedic Surgery Sports Medicine
PROC: (CPT 27447; principal; 2023-05-03 12:15)
DX: M17.12 Unilateral primary osteoarthritis, left knee (principal); G89.18 Other acute postprocedural pain; I25.10 Atherosclerotic heart disease of native coronary artery without angina pectoris; I47.10 Supraventricular tachycardia, unspecified; E78.5 Hyperlipidemia, unspecified
CPT/HCPCS: 27447; 01402; 36415; 64447; 64454; 73560; 76942; 82565; 84132; 84295; 84520; 85025; 97110; 97116; 97161; 97165; 97530; 97535; 99100; A9153; A9270; C1776; J1100; J2250; J2405; J2704; J2795; J3010; J3370; J7050; J7120

== ENCOUNTER 2023-05-21 10:29 | Emergency (ER) | payer MEDICARE, OTHER, SELFPAY ==
[2023-05-21] VITALS (27 sets, daily range): BP systolic 123–143; BP diastolic 69–81; PULSE 65–73; RESP 20; TEMP 37.7; O2SAT 95–99; BMI 27.0
--- NOTE | 2023-05-21 11:19 | CRLHL7_ITS ---
For Patients: As a result of the Century Cures Act, medical imaging exams and procedure reports are released immediately into your electronic medical record. You may view this report before your referring provider. If you have questions, please contact your health care provider. INDICATION: Chest pain TECHNIQUE: Chest 2 views. COMPARISON: None FINDINGS: Cardiovascular and mediastinum: Heart size and vasculature are normal in caliber and appearance. Mediastinum is within normal limits. Lungs and pleural spaces: Lungs are clear. No sign of infiltrate or mass. No sign of pleural effusion. No pneumothorax. Bones and soft tissues: No significant findings. IMPRESSION: Unremarkable chest. Dictated by Joni Chaudhari MD @ 05/21/2023 12:20:48 PM (Electronically Signed)
--- OUTSIDE RECORDS SUMMARY | 2023-05-21 11:31 | XMS_ITS | Clinical Summary ---
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 Luis/05/03/2023) 04/26/2023 Travel 04/23/2023 Travel 03/30/2023 Medical Messaging [facility] [address] [place] [address] Rehana Pandya MD Follow up to recent office visit 03/28/2023 10:15 AM SENIOR ORACLE DATABASE ADMINISTRATOR Ancillary Procedure [facility] [address] [facility] [address] 03/28/2023 9:15 AM SENIOR ORACLE DATABASE ADMINISTRATOR Office Visit [facility] [address] [place] [address] Rehana Pandya MD Toenail (Fungal infection left [...] ose) (Flu Clinic Only) 01/27/2016 COVID-19 vaccine ([facility] NTech 30mcg/0.3mL) 12YO+ BIVALENT PF, MDV 01/07/2022 COVID-19 vaccine ([employer] NTech 30mcg/0.3mL) PF, MDV 02/02/2021,06/30/2020,06/09/2020 HepA-HepB (Twinrix) 06/09/2022,10/02/2014 Influenza A (H1N1), Inactiva ganesh (Age >=3 Years) 04/13/2009 Influenza, High-dose Inactivated 02/03/2015,02/08 Influenza, High-dose Quadriv alent Inactivated 12/05/2022,02/08/2022,01/28/2021 Influenza, IIV3 (Age 6-35 mos) 01/21/2011,2009 Influenza, IIV3 (Age >=3 years) 12/21/19 12,04/13/2009,02/19/2008,02/24,02/06/2003 Influenza, IIV4 12/18/2012 Influenza, Inactivated AIIV4 (Age 65+ Years) Preserv Free 01/02/2020 Influenza, Inactivated IIV3 (Age 65+ Years) Preserv Free 01/28/2021,01/02/2019,12/29/2016 [place] Encephalitis 10/02/2014 Pneumococcal Poly,23-Valent (Pneumovax) 09/15/2016 Pneumococcal conj 13-Valent (Prevnar 13) 05/28/2014 RSV, Recombinant ADJ Reconst ituted (Arexvy 120MCG/0.5mL) 03/29/2023 Td (Age >=7 Years) 07/15/2005 Tdap 09/03/2013,07/15/2005 Typhoid (injectable) 06/09/2022,10/02/2014 Zoster (Shingrix-RZV, recombinant) 09/18/2018, Zoster (Zostavax-ZVL, live) 07/18/2013 Family History Medical History Relation Name Comments Heart Disease Father [facility] in 80s Stroke Maternal Grandmother Cancer-breast Mother Stage 3 invasi ve breast CA, 72 Heart Disease Mother [place] in 80s Other Mother Cancer-breast Other maternal great grandmother Heart Disease Paternal Grandmother Hypertension Paternal Grandmother Cancer-colon No Family History Relation Name Status Comments Father Alive Maternal Grandmother (Age 94) Mother Alive Other Paternal Grandmother (Age 71) [facility] Social History Tobacco Use Types Packs/Day Years [...] Comments Blood Pressure 116/66 04/26/2023 11:05 AM SENIOR ORACLE DATABASE ADMINISTRATOR Pulse 71 04/26/2023 11:05 AM SENIOR ORACLE DATABASE ADMINISTRATOR Temperature 36.7 ??C (98 ??F) 04/26/2023 11: 05 AM SENIOR ORACLE DATABASE ADMINISTRATOR Respiratory Rate 12 02/28/2011 9:31 AM SENIOR ORACLE DATABASE ADMINISTRATOR Oxygen Saturation 97% 04/26/2023 11: 05 AM SENIOR ORACLE DATABASE ADMINISTRATOR Inhaled Oxygen Concentration - - Weight 78.4 kg (172 lb 14.4 oz) 024 11:05 AM SENIOR ORACLE DATABASE ADMINISTRATOR Height 169.5 cm (5' 6.75) 03/28/2023 9:16 AM CS T Body Mass Index 27.28 03/28/2023 9:16 AM SENIOR ORACLE DATABASE ADMINISTRATOR Plan of Treatment Upcoming Encounters Date Type Department Care Team (Late st Contact Info) Description 10/18/2023 9:00 AM CDT Office Visit [facility] [address] [place] [address] Ed Kaminski DPM [address] [place] [address] Health Maintenance Due Date Last Done Comments Colonoscopy through age 75 1993 Tetanus booster 09/04/2023 09/03/2013, 0410/2005, 07/15/2005 Depression screening for age 12+ 10/21/2023 10/20/2022, 10/20/2022, 10/05/2021, Additional history exists Mammogram for age 45-75 10/21/2023 10/21/19 23, 10/05/2021, 09/04/2020, Additional history exists Medicare Wellness for age 65+ 10/21/2023 10/20/2022, 10/05/2021, 09/04/2020 Influenza for age 65+ 12/10/2023 12/05/2022 , [...] 18-79 Completed 10/20/2022 COVID-19 vaccine series Completed 04/13/19, 11/17/2022, 01/07/2022, Additional history exists Procedures Procedure Name Priority Date/Time Associated Diagnosis Comments SCAN-RADIOLOGY REPORT 05/03/2023 12:00 AM SENIOR ORACLE DATABASE ADMINISTRATOR XR KNEE 3 VIEWS LEFT Routine 03/28/2023 10:24 AM SENIOR ORACLE DATABASE ADMINISTRATOR Chronic pain of left knee from Last 3 Months Results * SCAN-RADIOLOGY REPORT (05/03/2023 12:00 AM SENIOR ORACLE DATABASE ADMINISTRATOR) Anatomical Region Laterality Modality Other Scanner OTHER * XR KNEE 3 VIEWS LEFT (03/28/2023 10:24 AM SENIOR ORACLE DATABASE ADMINISTRATOR) Anatomical Region Laterality Modality KNEES, KNEE L Computed Radiogr aphy 03/28/2023 10:4 0 AM SENIOR ORACLE DATABASE ADMINISTRATOR Impressions 03/28/2023 10:40 AM SENIOR ORACLE DATABASE ADMINISTRATOR Degenerative arthritis left knee predominantly the lateral and patellofemoral compartments. Dictated by Rock Smith MD @ Mar 28 2023 10:40AM (Electronically Signed) ?? Narrative 03/28/2023 10:40 AM SENIOR ORACLE DATABASE ADMINISTRATOR For Patients: ??As a result of the Cures Act, medical imaging exams and procedure reports are released immediately into your electronic medical record. ??You may view this report before your referring provider. ??If you have questions, please contact your health care provider. INDICATION: Chronic left knee pain. TECHNIQUE: Three views of the left knee. COMPARISON: None. FINDINGS: Marked narrowing near [id number] lateral compartment left knee with hypertrophic spurring. The medial compartment is fairly well preserved. Mild to moderate narrowing and spurring of the left patellofemoral compartment. No fracture, dislocation, erosion, or effusion. Procedure Note Rock Smith MD - 03/28/2023 For Patients: As a result of the Cures Act, medical imagingexams and procedure reports are released immediately into your electronicmedical record. You may view this report before your referring provider.If you have questions, please contact your health care provider. INDICATION: Chronic left knee pain. TECHNIQUE: Three views of the left knee. COMPARISON: None. FINDINGS: Marked narrowing near [id number] lateral compartment left knee withhypertrophic spurring. The medial compartment is fairly well preserved.Mild to moderate narrowing and spurring of the left patellofemoralcompartment. No fracture, dislocation, erosion, or effusion. IMPRESSION: Degenerative arthritis left knee predominantly the lateral andpatellofemoral compartments. Dictated by Rock Smith MD @ Mar 28 2023 10:40AM (Electronically Signed) Rehana Pandya MD GENERAL IMAGI NG from Last 3 Months Care Teams Hot [employer] Observer Relationship Specialty Start Date End Date Rehana Pandya MD [address] [place] [address] PCP - General Family Practice 03/03/15
[2023-05-21 11:34] LABS: Basophils Absolute Auto 0.03 K/uL (0.00-0.30); Basophils Percent Auto 0.6 % (0.0-3.0); Eosinophils Percent Auto 1.9 % (0.0-7.0); Hematocrit 35.4 % (33.0-51.0); Hemoglobin* 11.6 gm/dL (12.0-16.0); Lymphocytes Absolute Auto 1.15 K/uL (0.90-2.90); Lymphocytes Percent Auto 21.8 % (20-44); Mean Corpuscular HGB Conc 33 gm/dL (32-36); Mean Corpuscular Hemoglobin 32 pg (26-34); Mean Corpuscular Volume 98 fL (80-100); Monocytes Percent Auto 17.2 % (0.0-11.0); Neutrophils Absolute Auto 3.09 K/uL (1.7-7.0); Neutrophils Percent Auto 58.5 % (42.0-72.0); Platelet Count* 436 K/uL (140-440); RDW Coefficient of Variation % 12.8 % (11.5-15.5); Red Blood Count 3.62 m/uL (4.00-5.20); White Blood Count* 5.28 K/uL (4.50-11.00)
[2023-05-21 11:38] LABS: Albumin* 4.2 g/dL (3.3-5.0); Chloride* 99 mmol/L (96-114); Slide Review Reflex No; Sodium* 132 mmol/L (135-149)
[2023-05-21 11:39] LABS: Potassium* 3.8 mmol/L (3.6-5.1)
[2023-05-21 11:41] LABS: Alkaline Phosphatase* 48 U/L (40-150); Anion Gap 10 mEq/L (7-15); Aspartate Amino Transferase* 25 U/L (12-35); Bilirubin Total* 0.4 mg/dL (0.1-1.5); Carbon Dioxide* 23 mmol/L (20-32); Creatinine* 0.5 mg/dL (0.5-1.5); Estimated Glomerular Filt Rate 98 ml/min; Total Protein* 7.3 g/dL (6.0-8.3)
[2023-05-21 11:42] LABS: Alanine Aminotransferase* 30 U/L (4-35); Blood Urea Nitrogen* 11 mg/dL (7-30); Calcium* 9.1 mg/dL (8.4-10.6); Glucose* 118 mg/dL (60-115)
[2023-05-21 12:14] LABS: PCR FLU A Negative PCR FLU A (Negative); PCR FLU B Negative PCR FLU B (Negative); PCR RSV Negative PCR RSV (Negative); SARS PCR* Negative SARS-CoV-2 (Negative)
--- NOTE | 2023-05-21 12:24 | CRLHL7_ITS ---
For Patients: As a result of the Cures Act, medical imaging exams and procedure reports are released immediately into your electronic medical record. You may view this report before your referring provider. If you have questions, please contact your health care provider. HISTORY: Swelling. TECHNIQUE: Two views of the left knee. COMPARISON: No prior. FINDINGS: Cemented left total knee arthroplasty with patellar resurfacing procedure. Components appear appropriately seated. There is no periprosthetic fracture or hardware loosening. No soft tissue gas. IMPRESSION: Intact left total knee arthroplasty with patellar resurfacing procedure. Dictated by Jesus Goyal MD @ 05/21/2023 1:32:16 PM Dictated by: Jesus Goyal MD @ 05/21/2023 13:32:23 (Electronically Signed)
--- NOTE | 2023-05-21 13:50 | ED_ITS ---
HPI - Chest Pain General Chief Complaint: Chest Pain Stated Complaint: chest pressure/pain Time Seen by Provider: 05/21/23 11:00 Source: patient Mode of arrival: ambulatory Limitations: no limitations History of Present Illness HPI narrative: Patient is a 72-year-old female with a history of recent left knee replacement, hyperlipidemia presenting to the emergency department for chest pain. She states this morning at 05:00 she woke up but does not know if she woke up because he was having chest pain or because she had to urinate. She states she had some tightness to her lower chest region and into her abdomen that improved when she stood up. She states there is still some mild tightness but it is much better than before. She denies having symptoms like this before. No previous heart did or sores other than bowel urine half ago she had episodes were heart Chris start beating faster. She has seen Cardiology for this and she states she was never told a diagnosis. Her daughter is concerned because patient also as a sinus infection once patient gets frequently and has increased swelling to the left knee. Patient does note though she has spoken to orthopedics about this swelling and they are aware of it and has improved over the weekend. Patient denies shortness of breath, headache, lightheadedness, abdominal pain, weakness, numbness, fevers, chills, diarrhea, constipation. Related Data Home Medications Medication Instructions Recorded Confirmed rosuvastatin 10 mg tablet 10 mg PO HS 04/18/22 05/19/23 calcium citrate 250 mg PO TID 01/30/23 05/19/23 cholecalciferol (vitamin D3) 25 25 mcg PO DAILY 01/30/23 05/19/23 mcg (1,000 unit) capsule coenzyme Q10 100 mg capsule 100 mg PO DAILY 01/30/23 05/19/23 (CoQ-10) glucosamine HCl 500 mg tablet 500 mg PO DAILY 01/30/23 05/19/23 lactase 3,000 unit tablet (Dairy 3,000 unit PO QID PRN 01/30/23 05/19/23 Relief) acetaminophen 500 mg tablet 1,000 mg PO Q6H PRN 05/01/23 05/19/23 multivitamin (Daily Multi-Vitamin 1 tab PO DAILY 05/03/23 05/19/23 tablet) Previous Rx's Medication Instructions Recorded aspirin 81 mg tablet,delayed 81 mg PO BID #60 tabs 05/03/23 release T.e.d. stockings below knee #1 ea 05/11/23 Allergies Allergy/AdvReac Type Severity Reaction Status Date / Time erythromycin base Allergy Mild GI upset Verified 05/19/23 09:57 cephalothin AdvReac Intermediate Hives Verified 05/19/23 09:57 cephalexin [From Keflex] AdvReac Mild Hives Verified 05/19/23 09:57 Review of Systems Status of ROS Reports: 10 or more systems reviewed and unremarkable except as noted in History and below PFSH [facility] Medical History Left shoulder pain (04/09/15) ?M25.512 - Pain in left shoulder (ICD-10) Paroxysmal SVT (supraventricular tachycardia) ?I47.10 - Supraventricular tachycardia, unspecified (ICD-10) CAD in [place] artery ?I25.10 - Atherosclerotic heart disease of [place] coronary artery without angina pectoris (ICD-10) Primary osteoarthritis of right hip ?M16.11 - Unilateral primary osteoarthritis, right hip (ICD-10) Osteoarthritis of left glenohumeral joint ?M19.012 - Primary osteoarthritis, left shoulder (ICD-10) Rotator cuff syndrome of left shoulder ?M75.102 - Unspecified rotator cuff tear or rupture of left shoulder, not specified as traumatic (ICD-10) Subjective tinnitus ?H93.19 - Tinnitus, unspecified ear (ICD-10) Postmenopausal atrophic vaginitis ?N95.2 - Postmenopausal atrophic vaginitis (ICD-10) Sensorineural hearing loss (SNHL) of both ears ?H90.3 - Sensorineural hearing loss, bilateral (ICD-10) Hyperlipidemia ?E78.5 - Hyperlipidemia, unspecified (ICD-10) Osteoporosis ?M81.0 - Age-related osteoporosis without current pathological fracture (ICD- 10) Surgical History S/P total knee arthroplasty ?Z96.659 - Presence of unspecified artificial knee joint (ICD-10) 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) ?Z96.641 - Presence of right artificial hip joint (ICD-10) History of tonsillectomy and adenoidectomy ?Z90.89 - Acquired absence of other organs (ICD-10) History of section ?Z98.891 - History of uterine scar from previous surgery (ICD-10) Family History Mother Breast cancer, Onset Age: 72 Myocardial infarction, Onset Age: 80 Father Myocardial infarction, Onset Age: 80 Paternal Grandmother Coronary artery disease Maternal Grandmother Stroke Social History Narrative: Never smoker, denies EtOH use What is your current living situation?: I presently have a place to live Problems where you live: no known problems In the past 12 months, utilities in danger of being shut off: no In past 12 months, lack of transportation kept you from medical appts, meetings, work, or getting things needed for daily living: no In the past 12 mos, have been you worried that your food would run out before you had money to buy more?: never true In the past 12 mos, the food you bought just didn't last and you didn't have money to buy more?: never true Highest level of school completed/degree received: Master's degree Smoking Status: Never smoker Do you use any of these nicotine containing products: None Second hand tobacco smoke exposure: No How often do you have a drink containing alcohol: monthly or less Alcohol type: wine How many standard drinks containing alcohol do you have on a typical day: 1 or 2 How often do you have six or more drinks on one occasion: Never AUDIT-C Alcohol total score: 1 Non-prescribed substance use: denies use Caffeine: Yes (coffee, tea, pepsi minimal) How often does anyone, including family, friends and others, physically hurt you : never How often does anyone, including family, friends and others, insult or talk down to you: never How often does anyone, including family, friends and others, threaten you with harm: never How often does anyone, including family, friends and others, scream or curse at you: never service: No Exam Narrative Exam Narrative: Const: Well-nourished, Well-developed, in mild distress Eyes: PERRL, no conjunctival injection, and symmetrical lids HENT: Atraumatic external nose and ears. Moist mucous membranes. No sinus tenderness Neck: Symmetric, trachea midline, No thyromegaly. CVS: RRR, No murmurs or gallops. Peripheral pulses 2+ and equal in all extremities, + 2 lower extremity pitting edema bilaterally chcf up lower leg RESP: Unlabored respiratory effort. Clear to auscultation bilaterally. GI: Nontender/Nondistended, No rebound or guarding. MSK:Extremities w/o deformity, swollen left knee with well healing surgical sites, no tenderness to palpation of chest Skin: Warm, Dry. No rashes or lesions. Neuro: Normal Muscle tone, No focal neurological deficits. Psych: Awake, Alert, & Oriented x3. Appropriate mood and affect. Const Vital Signs, click to edit/add: Vital Signs - 24 hr 05/21/23 10:38 05/21/23 10:42 05/21/23 10:43 Temperature 99.8 F H Pulse Rate 71 71 Pulse Rate [Pulse Oximeter] 72 Respiratory Rate 20 Blood Pressure 127/69 Blood Pressure [Left Upper Arm] 127/69 Pulse Oximetry 97 97 97 Oxygen Delivery Method Room Air 05/21/23 10:45 05/21/23 11:00 05/21/23 11:01 Temperature Pulse Rate 71 66 66 Pulse Rate [Pulse Oximeter] Respiratory Rate Blood Pressure 123/70 Blood Pressure [Left Upper Arm] Pulse Oximetry 96 96 97 Oxygen Delivery Method 05/21/23 11:15 05/21/23 11:30 05/21/23 11:31 Temperature Pulse Rate 66 67 Pulse Rate [Pulse Oximeter] Respiratory Rate Blood Pressure 134/72 Blood Pressure [Left Upper Arm] Pulse Oximetry 99 99 Oxygen Delivery Method 05/21/23 11:42 05/21/23 11:45 05/21/23 12:00 Temperature Pulse Rate 71 67 66 Pulse Rate [Pulse Oximeter] Respiratory Rate Blood Pressure 143/76 H Blood Pressure [Left Upper Arm] Pulse Oximetry 97 99 99 Oxygen Delivery Method 05/21/23 12:02 05/21/23 12:15 05/21/23 12:30 Temperature Pulse Rate 65 70 65 Pulse Rate [Pulse Oximeter] Respiratory Rate Blood Pressure 127/72 Blood Pressure [Left Upper Arm] Pulse Oximetry 98 98 98 Oxygen Delivery Method 05/21/23 12:31 05/21/23 12:45 05/21/23 13:00 Temperature Pulse Rate 66 66 69 Pulse Rate [Pulse Oximeter] Respiratory Rate Blood Pressure 132/81 Blood Pressure [Left Upper Arm] Pulse Oximetry 98 97 98 Oxygen Delivery Method 05/21/23 13:01 05/21/23 13:15 05/21/23 13:30 Temperature Pulse Rate 69 70 68 Pulse Rate [Pulse Oximeter] Respiratory Rate Blood Pressure 135/78 Blood Pressure [Left Upper Arm] Pulse Oximetry 97 96 96 Oxygen Delivery Method 05/21/23 13:31 05/21/23 13:32 05/21/23 13:51 Temperature Pulse Rate 68 71 73 Pulse Rate [Pulse Oximeter] Respiratory Rate Blood Pressure 135/75 Blood Pressure [Left Upper Arm] Pulse Oximetry 96 95 98 Oxygen Delivery Method 05/21/23 14:00 05/21/23 14:01 05/21/23 14:15 Temperature Pulse Rate 69 68 69 Pulse Rate [Pulse Oximeter] Respiratory Rate Blood Pressure 124/81 Blood Pressure [Left Upper Arm] Pulse Oximetry 98 98 98 Oxygen Delivery Method Course Vital Signs Vital signs: Initial Vital Signs Temperature 99.8 F H 05/21/23 10:38 Temperature Source Temporal Artery Scan 05/21/23 10:38 Pulse Rate 72 05/21/23 10:38 Pulse Rhythm Regular 05/21/23 10:38 Respiratory Rate 05/21/23 10:38 Blood Pressure 127/69 05/21/23 10:38 Blood Pressure Mean 88 05/21/23 10:38 Blood Pressure Position Supine 05/21/23 10:38 Pulse Oximetry 97 05/21/23 10:38 Oxygen Delivery Method Room Air 05/21/23 10:38 Vital Signs Temperature 99.8 F H 05/21/23 10:38 Pulse Rate 72 05/21/23 10:38 Respiratory Rate 20 05/21/23 10:38 Blood Pressure 127/69 05/21/23 10:38 Pulse Oximetry 97 05/21/23 10:38 Oxygen Delivery Method Room Air 05/21/23 10:38 Temperature 99.8 F H 05/21/23 10:38 Pulse Rate 69 05/21/23 14:15 Respiratory Rate 05/21/23 10:38 Blood Pressure 124/81 05/21/23 14:01 Pulse Oximetry 98 05/21/23 14:15 Oxygen Delivery Method Room Air 05/21/23 10:38 MDM - Chest Pain MDM Narrative Medical decision making narrative: Patient is a 72-year-old female presenting to emergency department for chest pain. Chest pain occurred this morning around 05:00 and only lasted a short amount of time. She has scribe's as a tightness sensation that has improved significantly since then. She does have a history of hyperlipidemia but no other concerning medical problems. ACS is on the differential. She is not having any shortness of breath or dyspnea and PE seems very unlikely at this time. Symptoms are very unlikely be related to a aortic dissection due to her otherwise stable vital signs. Will do chest x-ray to look for pneumonia or pneumothorax. COVID/flu/RSV was ordered. She is having some sinus pain but no tenderness to palpation symptoms are only been going on for a few days. This is most likely viral and antibiotics are not indicated. Will order an x-ray of the left knee due to their concern but does look like it is healing well at this time and no obvious signs of infection. Also ordered CBC, CMP, troponin, EKG. Troponin was within normal limits. Repeat was done 2-1/2 hours later that was also within normal limits EKG returned showing no concerning abnormalities. CBC and CMP showed no concerning findings. A sodium slightly low at 132 but this is not concerning level at this time and is very unlikely to be causing his symptoms. It is higher than was a couple weeks ago. Chest x-ray reviewed by myself and the radiologist showed no concerning findings. Her heart score is 2 at this time. She is low risk and is safe for discharge from this aspect. Knee x-ray showed no concerning findings. This was also reviewed myself and the radiologist. No signs of effusion. The knee looks like it is healing well clinically and other orthopedic team is aware of the knee swelling already it is has improved since it was last evaluated by them. At this time I am not concerned for infection and patient can follow-up with orthopedics outpatient. They are agreeable to this plan. Patient was discharged home. Lab Data Labs: Lab Results 05/21/23 05/21/23 05/21/23 Range/Units 11:02 11:11 11:30 WBC 5.28 (4.50-11.00) K/uL RBC 3.62 L (4.00-5.20) m/uL Hgb 11.6 L (12.0-16.0) gm/dL Hct 35.4 (33.0-51.0) % MCV 98 (80-100) fL MCH 32 (26-34) pg MCHC 33 (32-36) gm/dL RDW Coeff of Jimy 12.8 (11.5-15.5) % Plt Count 436 (140-440) K/uL Neut % (Auto) 58.5 (42.0-72.0) % Lymph % (Auto) 21.8 (20-44) % [place] % (Auto) 17.2 H (0.0-11.0) % Eos % (Auto) 1.9 (0.0-7.0) % Baso % (Auto) 0.6 (0.0-3.0) % Neut # (Auto) 3.09 (1.7-7.0) K/uL Lymph # (Auto) 1.15 (0.90-2.90) K/uL [place] # (Auto) 0.90 (0.00-0.90) K/UL Eos # (Auto) 0.10 (0.00-0.50) K/uL Baso # (Auto) 0.03 (0.00-0.30) K/uL Abs Immat Gran (auto) 0.00 (0.00-0.30) K/uL Imm/Tot Granulo (auto) 0.0 % Sodium 132 L (135-149) mmol/L Potassium 3.8 (3.6-5.1) mmol/L Chloride 99 (96-114) mmol/L Carbon Dioxide 23 (20-32) mmol/L Anion Gap 10 (7-15) mEq/L BUN 11 (7-30) mg/dL Creatinine 0.5 (0.5-1.5) mg/dL Estimated Creat Clear 46.20 Estimated GFR 98 ml/min Glucose 118 H (60-115) mg/dL Calcium 9.1 (8.4-10.6) mg/dL Total Bilirubin 0.4 (0.1-1.5) mg/dL AST 25 (12-35) U/L ALT 30 (4-35) U/L Alkaline Phosphatase 48 (40-150) U/L Total Protein 7.3 (6.0-8.3) g/dL Albumin 4.2 (3.3-5.0) g/dL SARS-CoV-2 (PCR) Negative SARS-CoV-2 (Negative) Influenza Type A (PCR) Negative PCR FLU A (Negative) Influenza Type B (PCR) Negative PCR FLU B (Negative) RSV (PCR) Negative PCR RSV (Negative) POC Troponin I 0.00 L (0.01-0.04) ng/ml 05/21/23 Range/Units 13:26 WBC (4.50-11.00) K/uL RBC (4.00-5.20) m/uL Hgb (12.0-16.0) gm/dL Hct (33.0-51.0) % MCV (80-100) fL MCH (26-34) pg MCHC (32-36) gm/dL RDW Coeff of Jimy (11.5-15.5) % Plt Count (140-440) K/uL Neut % (Auto) (42.0-72.0) % Lymph % (Auto) (20-44) % [place] % (Auto) (0.0-11.0) % Eos % (Auto) (0.0-7.0) % Baso % (Auto) (0.0-3.0) % Neut # (Auto) (1.7-7.0) K/uL Lymph # (Auto) (0.90-2.90) K/uL [place] # (Auto) (0.00-0.90) K/UL Eos # (Auto) (0.00-0.50) K/uL Baso # (Auto) (0.00-0.30) K/uL Abs Immat Gran (auto) (0.00-0.30) K/uL Imm/Tot Granulo (auto) % Sodium (135-149) mmol/L Potassium (3.6-5.1) mmol/L Chloride (96-114) mmol/L Carbon Dioxide (20-32) mmol/L Anion Gap (7-15) mEq/L BUN (7-30) mg/dL Creatinine (0.5-1.5) mg/dL Estimated Creat Clear Estimated GFR ml/min Glucose (60-115) mg/dL Calcium (8.4-10.6) mg/dL Total Bilirubin (0.1-1.5) mg/dL AST (12-35) U/L ALT (4-35) U/L Alkaline Phosphatase (40-150) U/L Total Protein (6.0-8.3) g/dL Albumin (3.3-5.0) g/dL SARS-CoV-2 (PCR) (Negative) Influenza Type A (PCR) (Negative) Influenza Type B (PCR) (Negative) RSV (PCR) (Negative) POC Troponin I 0.00 L (0.01-0.04) ng/ml Imaging Data Chest x-ray: Radiologist's impression: Unremarkable chest. Dictated by Joni Chaudhari MD @ 05/21/2023 12:20:48 PM X-ray left knee: Radiologist's impression: Intact left total knee arthroplasty with patellar resurfacing procedure. Dictated by Jesus Goyal MD @ 05/21/2023 1:32:16 PM ECG Data Attestation: I personally reviewed and interpreted this ECG as follows: Prior ECG tracings: not available for review Interpretation: Normal sinus rhythm with a rate 74 beats per minute, normal intervals, normal axis, no ST or T-wave abnormalities Discharge Plan Discharge Clinical Impression: Atypical chest pain Patient Disposition: Home, Self-Care Condition: Stable Instructions: Noncardiac Chest Pain (ED) Additional Instructions: Follow-up with orthopedics if she could he is to have issues with the left knee. Return to emergency department for new or worsening symptoms. Activity Level: No Restrictions Discharge Diet: Regular Prescriptions: No Action calcium citrate 250 mg calcium tablet 250 mg PO TID glucosamine HCl 500 mg tablet 500 mg PO DAILY Rx Instructions: administer with a meal cholecalciferol (vitamin D3) 25 mcg (1,000 unit) capsule 25 mcg PO DAILY coenzyme Q10 [CoQ-10] 100 mg capsule 100 mg PO DAILY lactase [Dairy Relief] 3,000 unit tablet 3,000 unit PO QID PRN Rx Instructions: administer with meals and/or snacks (DME) T.e.d. stockings below knee Misc See Rx Instructions .Route Qty: 1 0RF Rx Instructions: As directed rosuvastatin 10 mg tablet 10 mg PO HS acetaminophen 500 mg tablet 1,000 mg PO Q6H PRN Rx Instructions: NO MORE THAN 4000 MG/DAY multivitamin [Daily Multi-Vitamin] Tablet 1 tab PO DAILY aspirin 81 mg tablet,delayed release (DR/EC) 81 mg PO BID Qty: 60 0RF Rx Instructions: Medication to help prevent blood clots postoperatively; take TWICE daily. Follow Up/Referrals: Rehana Pandya MD [Primary Care Provider] - Stand Alone Forms: Cardiovascular Decisions Info Instructions
== END 2023-05-21 14:39 | disposition home or self-care (01) ==
PROVIDERS: Emergency Provider Student in an Organized Health Care Education/Training Program; PCP Family Medicine
DX: R07.9 Chest pain, unspecified (principal)
CPT/HCPCS: 36415; 71046; 73560; 80053; 84484; 85025; 87631; 93005; 99283; 99284

== ENCOUNTER 2023-07-07 08:15 | Outpatient (RCR) | payer MEDICARE, OTHER, SELFPAY ==
--- NOTE | 2023-04-24 12:58 | PT.OPEX ---
PT [place] Outpatient Eval PT [facility] Outpatient Eval Start: 04/24/23 09:03 Freq: Status: Active Protocol: Document 04/24/23 12:33 DENI (Rec: 04/24/23 12:49 DENI [id number]) E-signed By Mandy Porras PT Physical Therapy Outpatient Evaluation Insurance Information Insurance Name Health [facility],Medicare B Medical Diagnosis LEFT KNEE OA M17.12 Treating Diagnosis KNEE PAIN M25.562 DIFFICULTY AMB R26.2 Referring MD THURMAN Subjective Subjective PATIENT WAS RECENTLY (03/30/23 ) HERE FOR A POST CONCUSSION SYNDROME DX WITH MINIMAL ISSUES FOLLOWING HER FALL. SHE REPORTS ONGOING HEADACHE BUT HAS EXPERIENCED THIS SINCE SHE WAS YOUNG. SHE STATES THAT, I AM READY TO GET MY KNEE TAKEN CARE OF NOW. I HAVE MANY FRIENDS WHO HAVE HAD A KNEE REPLACEMENT AND THEY HAVE FILLED ME ON WHAT THEY EXPERIENCED. Pain Comments 0 Date of Last Physician Visit 04/11/23 Date of Next Physician Visit 05/11/23 Date of Surgery (If applicable) 05/03/23 Current Work Status Retired Preferred Name ALE Precautions Treatment Precautions/Contraindications EGEGIK Therapy Limitations/Systems Review Not Limited Assessment Assessment/Impression PATIENT IS A [address] THURMAN FOR PREOP LEFT TKA. 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 SHE HAS ROM MEASURING 0- 0-128 WITH MIN EDEMA NOTING BILATERAL GENU VALGUM LEFT> RIGHT W/O PAIN. SHE HAS CONSISTENTLY PARTICIPATED IN THE [employer] PROGRAM FROM SEVERAL YEARS AT 48N AND IS FAMILIAR WITH THE EXERCISES PRESCRIBED POST OPERATIVELY THEY ARE THE SAME WHEN SHE HAD HER HIP REPLACED. WE DISCUSSED, AT LENGTH, THE POST OPERATIVE STATUS IN REGARD TO HER PAIN, SWELLING, AND MOBILITY WITH HIGHLIGHTS ON PAIN MGMT, FALL PREVENTION, AND POST OP EXERCISES. SHE DEMONSTRATED AN EXCELLENT UNDERSTANDING THROUGH TEACH BACK AND IS SCHEDULED FOR HER POST OP VISITS. Primary Functional Limitations PREOP: BALANCE STAIRS WALKING FOR DISTANCE/UNEVEN SURFACES Plan of Care Rehabilitation Potential Excellent Physical Therapy Goals 1. PATIENT WILL BE EDUCATED IN TKA PRE/POST OP SAFETY, MOBILITY, AND EXERCISES WITH WRITTEN HEP PROVIDED WITHIN ONE VISIT PATIENT RETURNING TO OUTPATIENT PHYSICAL THERAPY FOR REASSESSMENT POST OPERATIVELY ON 05/05/23 PATIENT GOALS WILL BE UPDATED TO POST OPERATIVE TKA REHAB GOALS WHEN SHE RETURNS Coordination/Communication With Referral Source Treatment Plan/Direct Interventions Gait Training,Ice/Cold/ Vasopneumatic,Joint Mobilization,Manual Therapy, Neuromuscular Re-ed,Self-Care/ Home Management,Therapeutic Activities,Therapeutic Exercises Frequency/Duration 2 VISITS/WK FOR 12 WEEKS Patient Will Be Discharged From Therapy Completion of LTG(s), Independently Progressing Evaluation Billing Untimed Code Treatment Minutes 15 PT Eval No Charge No Complexity Low Certification Information Initial Certification Date 04/24/23 Ending Certification Date 07/22/23 Provider Signature Shows Agreement With POC & Medical Necessity Physician Signature & Date Requested Please Sign/Date Here Physician Comment/Change : Physician NPI Number #
== END 2023-07-27 16:38 | disposition home or self-care (01) ==
PROVIDERS: PCP Family Medicine; Visit Provider Orthopaedic Surgery Sports Medicine
DX: M17.12 Unilateral primary osteoarthritis, left knee (principal); Z96.652 Presence of left artificial knee joint; Z51.89 Encounter for other specified aftercare
CPT/HCPCS: 97110; 97112; 97116; 97140; 97161; 97164; 97535

== ENCOUNTER 2025-03-05 13:54 | Outpatient (CLI) | payer MEDICARE, OTHER, SELFPAY ==
[2025-03-05 14:10] VITALS: BP 130/76; PULSE 75; RESP 16; TEMP 36.9; O2SAT 97
--- NOTE | 2025-03-05 14:35 | P.PCN_ITS ---
Procedure Note Time Seen by Provider: 14: Date Seen: 03/05/25 Provider Contact Time: 15:10 Date of procedure: 03/05/25 Will [facility] bill your pro fee for this procedure?: Yes Procedure: CRYONEUROLYSIS TREATMENT REPORT REFERRING PROVIDER: Kemal Naranjo TREATMENT PROVIDER: Santiago Acharya PREOPERATIVE DIAGNOSIS: Right knee osteoarthritis POSTOPERATIVE DIAGNOSIS: Right knee osteoarthritis? PROCEDURE: Cryoneurolysis of Multiple Sensory Nerves of the Knee ANESTHESIA: Local INDICATIONS: The patient is a very pleasant age and gender with primary osteoarthritis involving the 74-year-old female patient right knee who presents today for cryoneurolysis of multiple sensory nerves to the knee for severe knee pain.?Patient medical history was reviewed. The risks, benefits, treatment alternatives, and complications were discussed with the patient, including but not limited to bleeding, infection, nerve or tissue damage.?Informed consent was obtained. ? PRE-TREATMENT MOTOR ASSESSMENT/PAIN SCORE: Patient was able to demonstrate intact gross motor function with plantarflexion, dorsiflexion, adduction, abduction, hip flexion, and extension of the lower extremity.?Pre-treatment pain score of 3 out of 10 in the right knee. DESCRIPTION OF PROCEDURE: After obtaining informed consent, the patient was brought back to the treatment room and positioned supine on the table.?The right lower extremity was prepped with Chlorhexadine.?We began the procedure by performing our procedural pause.?Once this was completed and verified to be accurate, I began the procedure by identifying the nerves with the use of bedside ultrasound.?After the nerves were identified, the skin was marked and, using 1% lidocaine plain, the area of the nerves were anesthetized. ? After the anesthetic was administered, the Smart Tip 2190 cryoneurolysis needle was inserted into the treatment sites using ultrasound guidance.?Treatment was then initiated on the right lower extremity with the following nerves treated: Superior, superior medial, superior lateral, inferior medial genicular nerves and the infrapatellar branch of the saphenous nerve. At the termination of the treatment, the cryoneurolysis needle was removed with the patient's skin cleansed and Band-Aids and compression dressing applied. Patient tolerated the procedure without any incident or concern.? Patient was then instructed to stand, mobilize the joint, and was examined to ensure gross motor skills were intact. COMPLICATIONS: None POST-TREATMENT PAIN SCORE: 0 out of 10 in the [left/right] knee DISPOSITION: Discharge instructions were given to the patient with education on the post-procedure expectations. Patient was instructed to call the Ortho clinic with any post-procedure concerns or questions.
[2025-03-05 15:08] VITALS: BP 128/72; PULSE 76; RESP 16; O2SAT 97
== END 2025-03-05 15:21 | disposition home or self-care (01) ==
LOC: OP CLINIC 13:54
PROVIDERS: PCP Family Medicine; Visit Provider Nurse Anesthetist, Certified Registered
DX: M17.11 Unilateral primary osteoarthritis, right knee (principal)
CPT/HCPCS: 64640; 76942; C9809

== ENCOUNTER 2025-03-26 06:05 | Day surgery (SDC) | payer MEDICARE, OTHER, SELFPAY ==
[2025-03-26] VITALS (22 sets, daily range): BP systolic 89–117; BP diastolic 50–81; PULSE 52–64; RESP 12–16; TEMP 36.1–36.7; O2SAT 92–98; BMI 28.0
[2025-03-26] MEDS: LACTATED RINGERS 1000 ML 1,000 ML 100 ML IV ×3 (06:10→11:16)
[2025-03-26] MEDS: SODIUM CHLORIDE 0.9 % (FLUSH) 10 ML SYRINGE IVF (07:00)
[2025-03-26] MEDS: OXYCODONE (CR) 10 MG TAB.ER.12H PO (07:10)
[2025-03-26] MEDS: ACETAMINOPHEN 500 MG TABLET 1000 MG PO (07:10)
--- NOTE | 2025-03-26 07:11 | W.PM.H&PU ---
History & Physical Update History & Physical Update H&P Reviewed and patient assessed: No changes noted
[2025-03-26] MEDS: MIDAZOLAM HCL 1 MG/ML inj IVP (07:20)
--- NOTE | 2025-03-26 07:29 | SUR.PREOP ---
TIME?OUT:?0719 PT/RN/MDA?VERIFICATION?OF?SURGICAL?SITE,?PROCEDURE,?AND?CONSENT OBTAINED?PRIOR?TO?INVASIVE?PROCEDURE.
[2025-03-26] MEDS: TRANEXAMIC ACID 100 MG/ML INJ 1000 MG IV (07:46)
--- NOTE | 2025-03-26 07:51 | CRLHL7_ITS ---
For Patients: As a result of the Cures Act, medical imaging exams and procedure reports are released immediately into your electronic medical record. You may view this report before your referring provider. If you have questions, please contact your health care provider. Indication: Total knee replacement Technique: Two views right knee Findings/Impression: Hardware from a right total knee arthroplasty is in satisfactory position. Bone alignment is normal. No sign of acute fracture. Postop changes are within normal limits. Dictated by Brody Sutton MD @ 03/26/2025 11:18:18 AM (Electronically Signed)
--- NOTE | 2025-03-26 08:11 | SUR.OPER ---
PATIENT QUESTIONS ANSWERED SATISFACTORILY PREOPERATIVELY.? PATIENT BROUGHT TO OR #3 PER CART AFTER ADMINISTRATION OF A BLOCK.? Patient positioned supine on OR #3 bed.? The perioperative?team supported arms bilaterally on arm boards.? Final approval of positioning by surgeon.?
--- NOTE | 2025-03-26 09:19 | W.PM.NB ---
Nerve Block Nerve Block Time Seen by Provider: 07:19 Date Seen: 03/26/25 Type of block requested by surgeon for post-operative analgesia: adductor canal Side: right Time out performed: Yes Verification of patient name: Yes Verification of date of : Yes Site marking: site marked Name of person performing procedure: Marck Continuous monitoring Was continuous monitoring of O2 sat, B/P, environmental monitoring specialist, recorded every 15 minutes?: Yes Procedure Checklist: sterile prep, needles and gloves Ultrasound guided. Images saved: Yes Medications given in 5ml increments after negative aspiration: Marcaine %: 0.25 mL: 15 Needle gauge: 20 Precedex (mcg): 25 Patient tolerated procedure well: Yes Block Charges Block Charge (with Pro Fee): Femoral Nerve Use of Ultrasound Machine for Block: Yes- US Guidance/pain block
--- NOTE | 2025-03-26 09:19 | W.PM.NB ---
Nerve Block Nerve Block Time Seen by Provider: 07:09 Date Seen: 03/26/25 Type of block requested by surgeon for post-operative analgesia: geniculars Side: right Time out performed: Yes Verification of patient name: Yes Verification of date of : Yes Site marking: site marked Name of person performing procedure: Marck Continuous monitoring Was continuous monitoring of O2 sat, B/P, diagnostic cardiac sonographer, recorded every 15 minutes?: Yes Procedure Checklist: sterile prep, needles and gloves Ultrasound guided. Images saved: Yes Medications given in 5ml increments after negative aspiration: Marcaine %: 0.25 mL: 9 Needle gauge: 25 Patient tolerated procedure well: Yes Block Charges Block Charge (with Pro Fee): Genicular Nerve Block
--- NOTE | 2025-03-26 09:20 | P.ANES_ITS ---
Anesthesia Charges Start Date/Time Anesthesia Start Date: 03/26/25 Anesthesia Start Time: 07:26 Stop Date/Time Anesthesia Stop Date: 03/26/25 Anesthesia Stop Time: 10:00 Summary Extremes of Age - Over 70 or under 1: MDA Coding CPT Codes CPT Codes: ANESTH KNEE ARTHROPLASTY - 54979 ([id number]) P2 - PATIENT W/MILD SYST DISEASE, QK - TRUSS BUILDER 2-4 CNCRNT ANES PROC, QX - LOAN INSPECTOR SVC W/ MD MED DIRECTION Additional Codes: Summary - Extremes of Age - Over 70 or under 1: MDA ([id number])
--- NOTE | 2025-03-26 09:20 | W.ANESCHARGE ---
Anesthesia Charges Start Date/Time Anesthesia Start Date: 03/26/25 Anesthesia Start Time: 07:26 Stop Date/Time Anesthesia Stop Date: 03/26/25 Anesthesia Stop Time: 10:00 Summary Extremes of Age - Over 70 or under 1: MDA Coding CPT Codes CPT Codes: ANESTH KNEE ARTHROPLASTY - 83500 ([id number]) P2 - PATIENT W/MILD SYST DISEASE, QK - ANIMAL HEALTH TECHNICIAN 2-4 CNCRNT ANES PROC, QX - BULWARK CARPENTER SVC W/ MD MED DIRECTION Additional Codes: Summary - Extremes of Age - Over 70 or under 1: MDA ([id number])
--- NOTE | 2025-03-26 10:02 | P.ANES_ITS ---
Anesthesia Charges Start Date/Time Anesthesia Start Date: 03/26/25 Anesthesia Start Time: 07:26 Stop Date/Time Anesthesia Stop Date: 03/26/25 Anesthesia Stop Time: 10:00 Summary Extremes of Age - Over 70 or under 1: TOOTH CUTTER SPUR Coding CPT Codes CPT Codes: ANESTH KNEE ARTHROPLASTY - 55767 ([id number]) P2 - PATIENT W/MILD SYST DISEASE, QK - RULING MACHINE OPERATOR 2-4 CNCRNT ANES PROC, QX - TOOTH CUTTER SPUR SVC W/ MD MED DIRECTION Additional Codes: Summary - Extremes of Age - Over 70 or under 1: TOOTH CUTTER SPUR ([id number])
--- NOTE | 2025-03-26 10:02 | W.ANESCHARGE ---
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
--- NOTE | 2025-03-26 10:04 | P.ORPRC_ITS ---
Procedure Note Date of procedure: 03/26/25 Procedure: PREOPERATIVE DIAGNOSIS: 1. Right knee osteoarthritis, primary, severe POSTOPERATIVE DIAGNOSIS: 1. Right knee osteoarthritis, primary, severe PROCEDURE: 1. Right total knee arthroplasty - subvastus; cemented; limited tourniquet SURGEON: Kemal Naranjo MD. DIPPER AND DRIER: Alan Bryan PA-C - Of note, a skilled training and development assistant was critical for this case to aid in patient positioning, tissue retraction, limb manipulation/positioning, and closure. ANESTHESIA: Spinal anesthetic IMPLANTS: DePuy J&J all cemented TKA - Attune PS femur size 6 narrow Size 5 tibia 5mm poly spacer 35 mm patella TOURNIQUET: 30 minutes at 250 torr EBL: 100 mL COMPLICATIONS: None evident INDICATIONS: The patient is a pleasant 74-year-old female who has experienced severe right knee pain and difficulty bearing weight. Workup included x-rays which revealed severe osteoarthrosis in the knee. Given the deformity, the dysfunction, and the pain, as well as the failure of nonoperative management, recommendation was made for surgery. FINDINGS: Full-thickness chondral loss diffusely throughout the lateral compartment. Also patellofemoral and to a lesser degree medial compartment. Degenerative meniscus pathology lateral greater than medial. Moderate effusion upon entering the joint. DESCRIPTION OF PROCEDURE: Following a thorough discussion of risks, benefits, and alternatives consent was obtained and the right knee was marked. The patient was brought to the operating room and placed supine on the operating table. Induction of anesthesia was undertaken. 1 g IV Ancef and 1 g tranexamic acid was administered within 1 hr of incision preoperatively. Proper time-out was performed identifying proper patient, site, procedure. The operative extremity was prepped and draped in the appropriate sterile fashion using ChloraPrep after the patient was positioned supine with all bony prominences well padded. A longitudinal, anterior, midline skin incision was made starting approximately 3cm proximal to the superior pole of the patella and advanced distal to the tibial tubercle. A subvastus approach was utilized. A medial subperiosteal sleeve was created with knife, ruggiero elevator and curved osteotome. The retropatellar fatpad was resected and the synovium in the suprapatellar pouch excised to visualize the anterior femoral cortex. Femoral preparation was performed via an intramedullary guide. Step drill allowed access into the femoral canal. The distal cutting guide was placed with 6 ? of valgus and 11 mm cut on the distal femur due to a 5?+ flexion contracture. Femur was sized using a anterior referencing guide in 5 ? of external rotation after cross referencing with trans-epicondylar axis and Borden's line. This found have a best fit with the sizing noted above. The 4 in 1 cutting block was then placed, and the distal femur shaped accordingly. The box cut was then created and the trial implant inserted to confirm appropriate fit. We turned our attention to the proximal tibia. Extramedullary guide was utilized for cutting with the goal of being 90 degree cut from the mechanical axis of the tibia in the varus/valgus plane utilizing tibial crest as the primary alignment. Initially a 3 mm resection was performed from the medial tibial plateau. Ultimately, balancing was achieved in both flexion and extension in both varus and valgus. The knee was able to achieve full extension as well comfortably. The patella was initially measured and found have a thickness of 21 mm. It was resected back to approximately 14 mm. It was sized to be a best fit with as noted above. This was drilled, trial placed. All trials were placed and found to have an excellent stability and balance. At this stage, trial implants were removed, the knee was thoroughly irrigated with normal saline, and the cement was mixed. After irrigation, the knee was thoroughly dried, and cement placed, with the real tibial and femoral implants placed along with the patella. Trial poly spacer was placed and confirmed to have excellent range of motion and full extension, and the real poly spacer opened and inserted. All extra cement was removed, and a 3 min Betadine soak performed. Finally, a final irrigation round with normal saline was performed. Closure performed with 0 Vicryl and #0 Stratafix for the quad tendon/retinaculum. 2-0 Vicryl for the subcutaneous and 4-0 Stratafix for subcuticular closure. Dressings were applied and the patient was awoken from anesthesia after the tourniquet deflated and transferred the PACU in stable condition. A skilled training and development assistant was critical for this case to aid in patient positioning, tissue retraction, bone exposure, limb manipulation/positioning, patient safety, and closure. PLAN: 1. Weight bear as tolerated operative extremity. 2. 23 hr perioperative antibiotics. 3. Ice. 4. PT/OT consults for ambulation assistance/mobility education. 5. Social work consult for discharge planning. 6. DVT prophylaxis with at SCDs and aspirin twice daily.
[2025-03-26] MEDS: ACETAMINOPHEN 500 MG TABLET PO (12:30)
[2025-03-26] MEDS: IBUPROFEN 200 MG TABLET 600 MG PO (14:15)
--- NOTE | 2025-03-26 14:48 | SUR.PHASEII ---
Upon arrival from PT, pt pale, states I feel like I need to lie down. Everything is heavy. PT Zee and freelance writer assisted pt to bed. Vital signs obtained. pt states she would like ibuprofen. pt tolerated ibuprofen, coke and crackers. family in room with pt.
--- NOTE | 2025-03-26 16:12 | SUR.PHASEII ---
pt ambulated to bathroom with walker and staff, tolerated activity without difficulty. VSS upon return to room. Pt drinking water. Pt states pain 5/10. Pt and family verbalized ready for discharge. Wheelchair out with and pt to car.
== END 2025-03-26 15:30 | disposition home or self-care (01) ==
PROVIDERS: PCP Family Medicine; Visit Provider Orthopaedic Surgery Sports Medicine
PROC: (CPT 27447; principal; 2025-03-26 07:15)
DX: M17.11 Unilateral primary osteoarthritis, right knee (principal); G89.18 Other acute postprocedural pain
CPT/HCPCS: 27447; 01402; 64447; 64454; 73560; 76942; 97110; 97116; 97161; 97530; 99100; A9270; C1776; J0665; J0690; J2250; J3010; J7120

== ENCOUNTER 2025-03-29 16:29 | Emergency (ER) | payer MEDICARE, OTHER, SELFPAY ==
--- OUTSIDE RECORDS SUMMARY | 2025-03-29 16:31 | XMS_ITS | Clinical Summary ---
Author Organization [facility] Address [address] [place] [address] Care Team Providers Care Director Of Early Childhood Name Role Phone Rehana Be MD Primary Care Provide r Allergies Active AllergyReactionsCriticalityNoted EezhLmdblzjzMposmbbxyhYzxmwLdy27/09/2023 ErythromycinStomach Upset08/10/2007 Dosage related. DvpxbsqrrfkQiacv98/02/2008 Red rash Medications MedicationSigDispense QuantityRefillsLast FilledStart DateEnd DateStatus SUDAFED 30 MG TAB take 2 tablets (60 mg) by oral route every 6 hours as pkingu306ctive TYLENOL EXTRA STRENGTH 500 MG TAB take 2 tablets (1,000 mg) by oral route every 6 hours as hdjllj397ctive MULTIVITAMIN TAB Indications:Routine general medical examination at a health care facilitytake 1 tablet by oral route once daily with food 1 ctive CITRACAL + D 315 MG-200 UNIT TAB ctive cholecalciferol (VITAMIN D) 1,000 unit capsule Take 1 capsule by mouth once daily.ctive glucosamine sulfate (GLUCOSAMINE) 500 mg Tab Take 1 tablet by mouth 3 times daily.ctive lactase (LACTAID) 9,000 unit tab Take 1 Tablet (9,000 units) by mouth 4 times daily if needed (dairy sensitivity).ctive diphenhydrAMINE (BENADRYL) 25 mg capsule Take 1 Capsule (25 mg) by mouth at bedtime if needed (for sleep). Active Coenzyme Q10 10 mg cap Take 1 Capsule (10 mg) by mouth once daily.ctive rosuvastatin (CRESTOR) 10 mg tablet Indications:Hyperlipidemia, unspecified hyperlipidemia typeTake 1 Tablet (10 mg) by mouth at bedtime. 90 Tablet 5Active ipratropium (ATROVENT NASAL) 21 mcg (0.03 %) nasal spray Indications:Postnasal dripInhale 2 Sprays into affected nostril(s) three times daily. Independence dose in each nostril. As needed postnasal drainage 30 mL 1105Active amoxicillin 875 mg tablet Indications:acute bacterial maxillary sinusitisTake 1 Tablet (875 mg) by mouth two times daily. 20 Tablet 5Active amoxicillin 875 mg tablet Indications:skin and skin structure infectionTake 1 Tablet (875 mg) by mouth two times daily for 10 days. 20 Tablet Discontinued(Reorder (E-cancel not sent)) Active Problems ProblemNoted DateDiagnosed DateParoxysmal baibiotvoed67/17/2025 Overview (10/24/2024): AI Summary: The patient had paroxysmal supraventricular tachycardia, with a few runs of it detected via Zio patch. On 09/17/2021, the patient had 5 brief runs of supraventricular tachycardia, which were not likely to be causing significant symptoms. On 10/20/2022, there were no recent problems with supraventricular tachycardia. 10/24/23: HR 70 /min 10/24/23: K 4.6 mmol/L On meds: rosuvastatin, ubidecarenone Recent encounter dx: 06/27/23: Appointment - [facility] 10/20/22: Appointment - [facility] 09/17/21: Appointment - [facility] Recent notes: 10/24/23: Progress Notes - Medicare Wellness Visit by Rehana Be MD ... [+] ? Paroxysmal SVT (supraventricular tachycardia) (HC) I47.10 06/27/23: Progress Notes by Rehana Be MD ... [+] Paroxysmal SVT (supraventricular tachycardia) I47.10 06/15/23: Progress Notes by Rehana Be MD ... [+] ? Paroxysmal SVT (supraventricular tachycardia) I47.10 05/03/23: Consultation Note - Note by Carolee Jiang (from [employer]) ... [+] Paroxysmal SVT (supraventricular tachycardia) ... [+] ?I47.10 - Supraventricular tachycardia, unspecified (ICD-10) 05/03/23: Consult - [facility] [place], F/U CAD, 05/03/2023 by REHANA BE ... [+] Paroxysmal SVT (supraventricular tachycardia) 147.10 ... [+] Supraventricular tachycardia, unspecified (ICD-10) CAD in [place] artery 125.10 CAD in [place] gjtuma523Paroxysmal SVT (supraventricular tachycardia) 10/20/20220717Ozknjlklb963Primary osteoarthritis of right hip 06/17/2015Osteoarthritis of left glenohumeral joint04/13/2015Left shoulder pain 04/09/2015Rotator cuff syndrome of left kgguwkxs62/31/2015Subjective tinnitus 07/27/2010Osteoporosis, cwgsttofxmf99/04/2010Postmenopausal atrophic vaginitis 11/11/2009Sensorineural hearing loss, akrlmpseh32/15/2008 Resolved Problems ProblemNoted DateDiagnosed DateResolved DateAdhesive capsulitis of left shoulder Lumbosacral moehaoafjuanl04 Encounters DateTypeDepartmentCare ClbbYimtaeddfyx17/17/2025Orders Only [facility] Scanner 1 scan: (1-Ord) [facility] [place], XR KNEE RT 2V, 5105/18/2024Results Follow-Up [facility] [address] [place] [address] Rehana Be MD 03/13/2025 3:00 PM CSTOffice Visit [facility] [address] [place] [address] Rehana Be MD Pre-Op Exam (Right total knee 03/26/25/Dr. Luis)03/13/20253544Dlklvo69/26/2025 Orders Only [facility] Scanner 1 scan: (1-Ord) JANINE, CRYONEUROLYSIS OF MULTIPLE SENSORY NERVES OF THE KNEE, 5104/13/2024Telephone [facility] [address] [place] [address] Rehana Be MD Appointment Rkcdada6501/02/2025 12:35 PM CDTOffice Visit [facility] [address] [place] [address] [address] Rehana Be MD Eye Problem (Right upper lid, eye exam on Dec 26, 12/27- itching swollen) 01/01/2025Travelfrom Last 3 Months Immunizations ImmunizationAdministration DatesNext DueAMB Influenza, IIV3 (Age >=3 years)(Flu Clinic Only)01/21/2011,01/27/2010MB Influenza, IIV4 PF (=>6 mos Flulaval,Fluzone Fluarix)(Flu Clinic Only)12/28/2017Amb Influenza, Inact (High- dose) (Flu Clinic Only)01/27/2016COVID-19 VACCINE SPIKEVAX (MODERNA 50MCG/0.5ML) 12YO+ PFS5COVID-19 vaccine (XIHA-BioNTech 30mcg/0.3mL) 12YO+ BIVALENT PF, MDV2COVID-19 vaccine (XIHA-BioNTech 30mcg/0.3mL) PF, MDV 02/02/2021,06/30/2020,06/09/2020HepA-HepB (Twinrix)10/24/2024,06/09/2022, 10/02/2014Influenza A (H1N1), Inactivated (Age >=3 Years)04/13/2009Influenza, High-dose Tdjpgtfagxk13/07/2025,02/05/2024,02/03/2015,02/25/2014Influenza, High- dose Quadrivalent Wquclgilbyw84/28/2023,02/08/2022,01/28/2021Influenza, IIV3 (Age 6-35 mos)01/21/2011,04/13/2009Influenza, IIV3 (Age >=3 years)12/21/2011, 04/13/2009,02/19/2008,02/24/2005,02/06/2003Influenza, PHK175/01/2013Influenza, Inactivated AIIV4 (Age 65+ Years) Preserv Free01/02/2020Influenza, Inactivated IIV3 (Age 65+ Years) Preserv Free01/28/2021,01/02/2019,12/29/2016Japanese Bkfxscndsokt34/25/2015Pneumococcal Poly,23-Valent (Pneumovax)09/15/2016 Pneumococcal conj 13-Valent (Prevnar 13)05/28/2014RSV, Recombinant ADJ Reconstituted (Arexvy 120MCG/0.5mL)03/29/2023Td (Age >=7 Years)07/15/2005Tdap 10/25/2023,09/03/2013,07/15/2005Typhoid (injectable)06/09/2022,10/02/2014Zoster (Shingrix-RZV, recombinant)09/18/2018,06/22/2018Zoster (Zostavax-ZVL, live) 07/18/2013 Family History Medical HistoryRelationNameCommentsHeart DiseaseFatherMI in 80sStrokeMaternal GrandmotherCancer-breastMotherStage 3 invasive breast CA, 72Heart DiseaseMother VA in 80sOtherMotherCancer-breastOthermaternal great grandmotherHeart Disease Paternal GrandmotherHypertensionPaternal GrandmotherCancer-colonNo Family HistoryRelationNameStatusCommentsFatherAliveMaternal GrandmotherDeceased (Age 94)MotherAliveOtherPaternal GrandmotherDeceased (Age 71)[place] Social History Tobacco UseTypesPacks/DayYears UsedDateSmoking Tobacco: NeverSmokeless Tobacco: Never Tobacco Cessation:Counseling Given: Yes Alcohol UseStandard Drinks/WeekCommentsNo0 (1 standard drink = 0.6 oz pure alcohol)PHQ-2AnswerDate RecordedPHQ-2 TOTAL EZBCD717Social Connections AnswerDate RecordedDo you often feel lonely or isolated from those around you?0 10/22/2024lcohol UseAnswerDate RecordedHow often do you have a drink containing alcohol?How many drinks containing alcohol do you have on a typical day when you are drinking?How often do you have five or more drinks on one occasion?Financial Resource StrainAnswerDate Recorded Difficulty of Paying Living Vnoqcfya425/15/2025Difficulty of Paying Living ExpensesNot on file10/22/2024Food InsecurityAnswerDate RecordedDo you worry your food will run out before you are able to buy more?Transportation NeedsAnswerDate RecordedDoes lack of transportation keep you from medical appointments?Does lack of transportation keep you from work, meetings or getting things that you need?Housing StabilityAnswerDate Recorded What is your housing situation today?UtilitiesAnswerDate RecordedDo you have trouble paying for utilities (for example, heat, electricity, water, phone)?CommentsNoSex and Gender InformationValueDate Recorded Sex Assigned at BirthNot on fileLegal YqhQdzqur78/14/2013 6:34 AM CSTGender IdentityNot on fileSexual OrientationNot on file Obstetrics History GravidaParaTermPretermABIABSABEctopicMultipleLivingLive Jlsrnh814KfgaZradjkcSQ Total LaborLabor/2nd/8tbHeittvUxrDrjgUlxrTBIDqnC4B9UtawAkpxUnlr Last Filed Vital Signs Vital SignReadingTime TakenCommentsBlood Jqhagjzi829/7912/07/2024 3:00 PM SILVICULTURE PROFESSOR Dfmgj646703/13/2025 3:00 PM LSPKridiqcaihz68.7 ??C (98.1 ??F)01/02/2025 12:53 PM CDTRespiratory Welt105204/30/2010 9:31 AM CSTOxygen Plicwabdku08%03/13/2025 3:00 PM CSTInhaled Oxygen Concentration--Amomfp03.9 kg (174 lb)03/13/2025 3:00 PM SILVICULTURE PROFESSOR Secwyv031.8 cm (5' 7.25)10/24/2024 1:08 PM CDTBody Mass Index27.05010/24/2024 1:08 PM CDT Plan of Treatment Health MaintenanceDue DateLast DoneCommentsCOVID-19 vaccine series ( season), 11/01/2024, 02/05/2024, Additional history exists BMI (ht and wt on same day) for age 18+, 10/24/2023, 03/28/2023, Additional history existsDepression screening for age 12+10/24/2025 10/24/2024, 10/24/2023, 10/20/2022, Additional history existsMedicare Wellness for age 65+, 10/24/2023, 10/20/2022, Additional history existsTetanus neflqgj35, 09/03/2013, 07/15/2005, Additional history existsDEXA/DXA scan for age 65+Fjciuvqnv72/03/2015, 08/02/2011, 11/12/2009, Additional history existsPneumococcal series for age 50+Completed 09/15/2016, 05/28/2014Zoster (shingles) series for age 50+Kxwvuwkqc85/11/2019, 06/22/2018, 07/18/2013Hepatitis C screening for age 18-39Enejowuyj63/13/2023RSV vaccine for adults or gclhhqwyyXfmagxkcd87/20/2023Hepatitis B series for 19+ Qviuunmlg69/17/2025, 06/09/2022, 10/02/2014Influenza HilqrthSerxfrtdb85/07/2025, 02/05/2024, 01/28/2021, Additional history exists Procedures Procedure NamePriorityDate/TimeAssociated DiagnosisCommentsSCAN-RADIOLOGY REPORT 03/26/2025 12:00 AM SILVICULTURE PROFESSOR CBC WITH AUTO ADBZATXMJEWSVvnzbdf97/04/2025 4:24 PM SILVICULTURE PROFESSOR Preoperative examination BASIC METABOLIC BFCRVRmmgrfa49/04/2025 4:24 PM SILVICULTURE PROFESSOR Preoperative examination CBC WITH AUTO BJHHMQRASMNQCyephrs46/04/2025 4:24 PM SILVICULTURE PROFESSOR Preoperative examination SCAN-OPERATIVE/PROCEDURE LLPKWR2303/05/2025 12:00 AM SILVICULTURE PROFESSOR LC HCV ANTIBODY RFX TO QUANT CTSLzhuuky93/13/2023 9:31 AM CDT Encounter for hepatitis C screening test for low risk patient XR DXA BONE DENSITY 2 SITES RTXWOEqvzfaz28/03/2015 1:49 PM SILVICULTURE PROFESSOR Unspecified osteoporosis from Last 3 Months or Most Recently Relevant to Health Maintenance Results * SCAN-RADIOLOGY REPORT (03/26/2025 12:00 AM SILVICULTURE PROFESSOR)Anatomical RegionLaterality ModalityOther Narrative Authorizing ProviderResult TypeResult StatusScannerOTHERFinal Result * CBC WITH AUTO DIFFERENTIAL (03/13/2025 4:24 PM SILVICULTURE PROFESSOR)ComponentValueRef RangeTest MethodAnalysis TimePerformed AtPathologist SignatureWHITE BLOOD CELL COUNT5.4 3.8 - 10.8 Thousand/uL03/14/2025 3:34 AM CSTQUEST DIAGNOSTICSRED BLOOD CELL COUNT4.273.80 - 5.10 Million/uL03/14/2025 3:34 AM CSTQUEST DIAGNOSTICS BSCLDJKXYT06.011.7 - 15.5 g/dL03/14/2025 3:34 AM CSTQUEST DIAGNOSTICS OHTEHUGLTW54.235.9 - 46.0 %03/14/2025 3:34 AM CSTQUEST ECHMJIZYWOYNZH86.581.4 - 101.7 fL03/14/2025 3:34 AM CSTQUEST ITDRXOOCGQQATR78.827.0 - 33.0 pg 03/14/2025 3:34 AM CSTQUEST WHRJAOGRKZLRRGM30.031.6 - 35.4 g/dL03/14/2025 3:34 AM CSTQUEST DIAGNOSTICSComment: For adults, a slight decrease in the calculated MCHC value (in the range of 30 to 32 g/dL) is most likely not clinically significant; however, it should be interpreted with caution in correlation with other red cell parameters and the patient's clinical condition. RDW11.711.0 - 15.0 %03/14/2025 3:34 AM CSTQUEST DIAGNOSTICSPLATELET SGQLC658870 - 400 Thousand/uL03/14/2025 3:34 AM CSTQUEST DIAGNOSTICSMPV9.67.5 - 12.5 fL 03/14/2025 3:34 AM CSTQUEST WMFCQBEJWFTWZIQTVRWLCY01.6%03/14/2025 3:34 AM SILVICULTURE PROFESSOR [facility] KTFFWBXXAHREJOFXGCJSMG97.8%03/14/2025 3:34 AM CST[facility] DIAGNO[facility]ICS WMCQTJQEV88.2%03/14/2025 3:34 AM CSTQUEST DIAGNOSTICSEOSINOPHILS3.5%03/14/2025 3:34 AM CSTQUEST DIAGNOSTICSBASOPHILS0.9%03/14/2025 3:34 AM [facility]ST[facility] DIAG[facility] ABSOLUTE MKAYDQIEQHZ31337545 - 7800 cells/uL03/14/2025 3:34 AM CSTQUEST DIAGNOSTICSABSOLUTE OEHMOSUITGA0109286 - 3900 cells/uL03/14/2025 3:34 AM SILVICULTURE PROFESSOR [facility] DIAGNOSTICSABSOLUTE UNQWYOPTA033210 - 950 cells/uL03/14/2025 3:34 AM SILVICULTURE PROFESSOR [facility]NOSTICSABSOLUTE RMNGOFJZURC58778 - 500 cells/uL03/14/2025 3:34 AM SILVICULTURE PROFESSOR [facility]NOSTICSABSOLUTE DHPRYZEZW619 - 200 cells/uL03/14/2025 3:34 AM CSTQUEST DIAGNOSTICSSpecimen (Source)Anatomical Location / LateralityCollection Method / VolumeCollection TimeReceived TimeBloodBLOOD SPECIMEN / UnknownQuest Collect / Glpmlrn8203/13/2025 4:24 PM CST03/13/2025 4:24 PM SILVICULTURE PROFESSOR Narrative Authorizing ProviderResult TypeResult StatusSohame Thelma Be MDHEMATOLOGY Final ResultPerforming OrganizationAddressCity/State/ZIP CodePhone Number [facility] [address] [place] [address], * BASIC METABOLIC PANEL (03/13/2025 4:24 PM SILVICULTURE PROFESSOR)ComponentValueRef RangeTest MethodAnalysis TimePerformed AtPathologist WecfrohopMCIJSD153261 - 146 mmol/L 03/14/2025 4:24 AM CSTQUEST DIAGNOSTICSPOTASSIUM4.43.5 - 5.3 mmol/L105/15/2024 4:24 AM CSTQUEST DIAGNOSTICSCARBON KTNDKAH7861 - 32 mmol/L105/15/2024 4:24 AM CSTQUEST BVBEYNRBEWQTQWNAAP5085 - 99 mg/dL03/14/2025 4:24 AM CSTQUEST DIAGNOSTICSComment: ? Fasting reference interval BXVZLAL42.08.6 - 10.4 mg/dL03/14/2025 4:24 AM CSTQUEST DIAGNOSTICSCREATININE0.67 0.60 - 1.00 mg/dL03/14/2025 4:24 AM CSTQUEST DIAGNOSTICSBUN/CREATININE RATIOSEE NOTE:6 - 22 (calc)03/14/2025 4:24 AM CSTQUEST DIAGNOSTICSComment: ?? Not Reported: BUN and Creatinine are within ?? reference range. ? EGFR91> OR = 60 mL/min/1.64d05303/14/2025 4:24 AM CSTQUEST DIAGNOSTICSUREA NITROGEN (BUN)147 - 25 mg/dL03/14/2025 4:24 AM CSTQUEST DIAGNOSTICSELECTROLYTE ALSGTBI21 - 17 mmol/L (calc)03/14/2025 4:24 AM CSTQUEST EXSBJCALALJBETIFWPW17106 - 110 mmol/L105/15/2024 4:24 AM CSTQUEST DIAGNOSTICSSpecimen (Source)Anatomical Location / LateralityCollection Method / VolumeCollection TimeReceived TimeBlood BLOOD SPECIMEN / UnknownQuest Collect / Tjhaydi0903/13/2025 4:24 PM CST03/13/2025 4:24 PM SILVICULTURE PROFESSOR Narrative Authorizing ProviderResult TypeResult StatusRehana Be MDCHEMISTRY Final ResultPerforming OrganizationAddressCity/State/ZIP CodePhone Number [facility] [address] [place] [address], * SCAN-OPERATIVE/PROCEDURE REPORT (03/05/2025 12:00 AM SILVICULTURE PROFESSOR) Narrative Authorizing ProviderResult TypeResult StatusScannerOTHERFinal Result * LC HCV ANTIBODY RFX TO QUANT PCR (10/20/2022 9:31 AM CDT)ComponentValueRef RangeTest MethodAnalysis TimePerformed AtPathologist SignatureHCV AbNon ReactiveNon Basmgkfg53/16/2023 3:07 PM CDTLABCORP [facility])Specimen (Source)Anatomical Location / Laterality Collection Method / VolumeCollection TimeReceived TimeBloodBLOOD SPECIMEN / UnknownVenipuncture / Enmsmkx8810/20/2022 9:31 AM CDT10/20/2022 9:35 AM CDT Narrative [facility] ([facility]) - 10/23/2022 3:07 PM CDT Performed at: [address] [place] [address] ??[id number] Bridge Ironworker Helper: Arash Aguilar MD, Phone: ??[phone] Authorizing ProviderResult TypeResult StatusRehana Be MDLABORATORY Final ResultPerforming OrganizationAddressCity/State/ZIP CodePhone Number [facility] ([facility]) [address] [place] [address], * (ABNORMAL) XR DXA BONE DENSITY 2 SITES (05/13/2014 1:49 PM SILVICULTURE PROFESSOR)Anatomical RegionLateralityModalitySpine, HIPS, HIPL, HIPROtherSpecimen (Source) Anatomical Location / LateralityCollection Method / VolumeCollection Time Received Time Narrative 05/14/2014 7:46 AM SILVICULTURE PROFESSOR Please see scanned document for results of this study. Procedure Note Lia Lopez - 05/14/2014 Please see scanned document for results of this study. Authorizing ProviderResult TypeResult StatusGretchen Dahle EhresmannDEXAFinal Result from Last 3 Months or Most Recently Relevant to Health Maintenance Insurance * Guarantor: Breanna Mccloud AAc TypeRelation to PatientDate of PhoneBilling ReilgdvGmvroyIbwg50/28/1951 [address] [place] [address] [address] [id number] Care Teams Team MemberRelationshipSpecialtyStart DateEnd Rehana Clark MD [address] [place] [address] PCP - GeneralFamily Iynjbnir27/24/15
[2025-03-29 16:51] VITALS: BP 134/76; PULSE 68; RESP 18; TEMP 36.8; O2SAT 96; BMI 28.1
--- NOTE | 2025-03-29 17:37 | CRLHL7_ITS ---
For Patients: As a result of the Century Cures Act, medical imaging exams and procedure reports are released immediately into your electronic medical record. You may view this report before your referring provider. If you have questions, please contact your health care provider. INDICATION: Right lower extremity pain and swelling. TECHNIQUE: Ultrasound venous duplex lower right extremity. Compression venous exam was performed using szymanski-scale, color Doppler, and spectral Doppler analysis. COMPARISON: None. FINDINGS: Deep veins: Sonographic imaging demonstrates the right common femoral, deep femoral, superficial femoral, popliteal, posterior tibial, peroneal and the contralateral left common femoral veins to be fully compressible with normal color Doppler blood flow. Superficial veins: Greater saphenous vein is fully compressible. Complex fluid collection at the popliteal fossa measuring 6.5 x 3.3 x 3.5 cm. IMPRESSION: 1. No right lower extremity DVT identified. 2. Complex popliteal cyst measuring up to 6.5 cm containing prominent debris. Dictated by Jluis Barajas MD @ 03/29/2025 7:17:14 PM (Electronically Signed)
--- NOTE | 2025-03-29 18:45 | ED_ITS ---
HPI - General Adult General Date Seen: 03/29/25 Chief complaint: Extremity Pain/Injury, Lower Stated complaint: post surgery complications Time Seen by Provider: 03/29/25 18:38 History of Present Illness HPI narrative: 74-year-old female presenting to the ER today with pain and swelling involving her right knee and right lower extremity. she has a past medical history of coronary artery disease, PSVT, previous left knee replacement, she shoulder rotator cuff injury, hearing loss, hyperlipidemia, osteoporosis She underwent a right total knee replacement 3 days ago on Monday here in [place] with Dr. Rai. She started physical therapy yesterday. Yesterday evening she started having throbbing pain in her left lower extremity. She has been taking ibuprofen for it. She notes that her right knee is been increasingly more swollen, developing redness, and becoming more painful throughout the day. She is not having any fever. No chills. No other systemic symptoms of illness. She also has been having a little bit of chest ?tightness ? that she thinks are probably short runs of SVT that happened yesterday morning around breakfast. She notes that when she had her previous left knee replaced she recovered well and did not have any significant redness, swelling, or bruising her left leg. She had her right knee replaced 3 days ago on Monday and did very well. She was discharged to the evening of the operation because she was cleared by PT. She has been able to get up and walk around quite vigorously at home. She went to physical therapy yesterday and was able to do well. She is exceeding expectations of MT. However today she is noting increasing pain and swelling in the right knee. Also little bit of redness diffusely on the anterior knee. She also noted a little bit of pain radiating distally into the right donato on the anterolateral aspect. She is having bruising on the posterior thigh. No pain in the thigh. She does not have a fever. Sometimes she does feel warm and she had a little bit of sweat at home. She is not having a cough. No trouble breathing today. No abdominal pain. No urinary symptoms. No known injury. No fall. She is not taking the dressings off of her incision since the operation. Related Data Home Medications ?Medication ?Instructions ?Recorded ?Confirmed rosuvastatin 10 mg tablet 10 mg PO HS 04/18/22 5 calcium citrate 250 mg PO TID 01/30/2303/26 cholecalciferol (vitamin D3) 25 25 mcg PO DAILY 03/26/25 mcg (1,000 unit) capsule coenzyme Q10 100 mg capsule 100 mg PO DAILY 01/30/23 1 05/27/24 (CoQ-10) glucosamine HCl 500 mg tablet 500 mg PO DAILY 01/30/23 03/26/25 lactase 3,000 unit tablet (Dairy 9,000 unit PO QID PRN 01/30/23 03/26/25 Relief) acetaminophen 500 mg tablet 1,000 mg PO Q6H PRN 03/26/25 multivitamin (Daily Multi-Vitamin 1 tab PO DAILY 05/0303/26/25 tablet) [id number] 400 unit 400 unit PO QDAY PRN 03/26/25 tablet (Beano) Previous Rx's ?Medication ?Instructions ?Recorded aspirin 81 mg tablet,delayed 81 mg PO BID #60 tabs release ondansetron 4 mg disintegrating 4 mg PO Q8H PRN nausea and 03/26/25 tablet vomiting #15 tabs sennosides 8.6 mg-docusate sodium 1 tab-cap PO BID PRN constipation 03/26/25 50 mg tablet (Senna-S) #15 tabs tramadol 50 mg tablet 50 mg PO Q8H PRN pain #10 ta bs 03/26/25 Allergies Allergy/AdvReac Type Severity Reaction Status Date / Time erythromycin base Allergy Mild GI upset Verified 03/26/25 06:19 cephalothin AdvReac Intermediate Hives Verified 03/26/25 06:19 cephalexin (From Keflex) AdvReac Mild Hives Verified 03/26/25 06:19 PFSH PFSH Medical History (Updated 03/29/25 @ 22:28 by Randal Mayo MD) Left shoulder pain (04/09/15) ?M25.512 - Pain in left shoulder (ICD-10) Paroxysmal SVT (supraventricular tachycardia) ?I47.10 - Supraventricular tachycardia, unspecified (ICD-10) CAD in [place] artery ?I25.10 - Atherosclerotic heart disease of [place] coronary artery without angina pectoris (ICD-10) Primary osteoarthritis of right hip ?M16.11 - Unilateral primary osteoarthritis, right hip (ICD-10) Osteoarthritis of left glenohumeral joint ?M19.012 - Primary osteoarthritis, left shoulder (ICD-10) Rotator cuff syndrome of left shoulder ?M75.102 - Unspecified rotator cuff tear or rupture of left shoulder, not specified as traumatic (ICD-10) Subjective tinnitus ?H93.19 - Tinnitus, unspecified ear (ICD-10) Postmenopausal atrophic vaginitis ?N95.2 - Postmenopausal atrophic vaginitis (ICD-10) Sensorineural hearing loss (SNHL) of both ears ?H90.3 - Sensorineural hearing loss, bilateral (ICD-10) Hyperlipidemia ?E78.5 - Hyperlipidemia, unspecified (ICD-10) Osteoporosis ?M81.0 - Age-related osteoporosis without current pathological fracture (ICD- 10) Surgical History (Reviewed 11/15/24 @ 09:19 by Chantell Munoz ~ [facility], [employer]) S/P total knee arthroplasty (05/03/23) ?Z96.659 - Presence of unspecified artificial knee joint (ICD-10) 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) ?Z96.641 - Presence of right artificial hip joint (ICD-10) History of tonsillectomy and adenoidectomy ?Z90.89 - Acquired absence of other organs (ICD-10) History of section ?Z98.891 - History of uterine scar from previous surgery (ICD-10) Family History Mother Breast cancer, Onset Age: 72 Myocardial infarction, Onset Age: 80 Father Myocardial infarction, Onset Age: 80 Paternal Grandmother Coronary artery disease Maternal Grandmother Stroke Social History Narrative: Never smoker, denies EtOH use What is your current living situation?: I presently have a place to live Problems where you live: no known problems In the past 12 months, utilities in danger of being shut off: no In past 12 months, lack of transportation kept you from medical appts, meetings, work, or getting things needed for daily living: no In the past 12 mos, have been you worried that your food would run out before you had money to buy more?: never true In the past 12 mos, the food you bought just didn't last and you didn't have money to buy more?: never true Highest level of school completed/degree received: Master's degree Smoking Status: Never smoker Do you use any of these nicotine containing products: None Second hand tobacco smoke exposure: No How often do you have a drink containing alcohol: monthly or less Alcohol type: wine How many standard drinks containing alcohol do you have on a typical day: 1 or 2 How often do you have six or more drinks on one occasion: Never AUDIT-C Alcohol total score: 1 Non-prescribed substance use: denies use Caffeine: Yes (coffee, tea, pepsi minimal) How often does anyone, including family, friends and others, physically hurt you : never How often does anyone, including family, friends and others, insult or talk down to you: never How often does anyone, including family, friends and others, threaten you with harm: never How often does anyone, including family, friends and others, scream or curse at you: never Are you using contraception or practicing any form of control: No service: No Exam Narrative: Exam Narrative: Constitutional: Appears well-developed and well-nourished. Alert. Conversant and very intelligent.. Non toxic. Her and daughter are tentatively at her side. HENT: Head: Atraumatic. Nose: Nose normal. Mouth/Throat: Oral mucosa is clear and moist. no trismus. Pharynx normal. Tonsils symmetric. No tonsillar enlargement, erythema, or exudate. Eyes: Conjunctivae normal. EOM normal. Pupils equal, round, and reactive to light. No scleral icterus. Neck: Normal range of motion. Neck supple. No tracheal deviation present. Cardiovascular: Normal rate, regular rhythm. No gallop. No friction rub. No murmur heard. Symmetric DP and PT artery pulses Pulmonary/Chest: Effort normal. No stridor. No respiratory distress. No wheezes. No rales. No rhonchi . Abdominal: Soft. Bowel sounds normal. No distension. No mass. No tenderness. No rebound. No guarding. Musculoskeletal: RUE: Normal range of motion. No tenderness. No deformity LUE: Normal range of motion. No tenderness. No deformity RLE: Hip is nontender. Ankle and foot are nontender. Range of motion of the right knee is from about 5? of flexion down to about 90? of flexion. She is able to actively bend and straighten it pretty well. She does have edema affecting the right thigh with some fairly widespread ecchymosis in the right posterior thigh. She has edema of the right knee. No definite ballotable effusion but there is definitely some significant swelling there. She has a nice dressing in place over her anterior vertical incision. The dressing looks good. There is some diffuse erythema affecting the central portion of the anterior knee, that does not appear to be related to a adhesive related contact dermatitis. The right knee feels warm compared to left knee. She also has some ecchymosis and warmth in the popliteal fossa. She does have some edema involving the donato and calf. No palpable cord. 1+ edema in the ankle. Foot and toes are nontender. Normal ankle plantar flexion and dorsiflexion. LLE: Normal range of motion. No edema. No tenderness. No deformity Lymph: No ascending lymphangitis . Neurological: Alert and oriented to person, place, and time. Normal strength. CN II-VII intact. No sensory deficit. GCS eye subscore is 4. GCS verbal subscore is 5. GCS motor subscore is 6. Normal coordination Skin: Skin is warm and dry. No rash noted. No pallor. Normal capillary refill. Psychiatric: Normal mood. Normal affect. Const: Vital Signs, click to edit/add: Vital Signs - 24 hr 03/29/25 16:51 03/29/25 20:14 Temperature 98.3 F 99.3 F Pulse Rate [Pulse Oximeter] 68 Respiratory Rate 18 18 Blood Pressure [Ri ght Upper Arm] 134/76 129/61 Pulse Oximetry 96 97 Oxygen Delivery Me thod Room Air Room Air Course Vital Signs Vital signs: Initial Vital Signs Temperature 98.3 F 03/29/25 16:51 Temperature Source Temporal Artery Scan 03/29/25 16:51 Pulse Rate 68 03/29/25 16:51 Pulse Rhythm Regular 03/29/25 16:51 Respiratory Rate 18 03/29/25 16:51 Blood Pressure 134/76 03/29/25 16:51 Blood Pressure Mean 95 03/29/25 16:51 Blood Pressure Position Sitting 03/29/25 16:51 Pulse Oximetry 96 03/29/25 16:51 Oxygen Delivery Method Room Air 03/29/25 16:51 Vital Signs Temperature 98.3 F 03/29/25 16:51 Pulse Rate 68 03/29/25 16:51 Respiratory Rate 18 03/29/25 16:51 Blood Pressure 134/76 03/29/25 16:51 Pulse Oximetry 96 03/29/25 16:51 Oxygen Delivery Method Room Air 03/29/25 16:51 Temperature 99.3 F 03/29/25 20:14 Pulse Rate 68 03/29/25 16:51 Respiratory Rate 18 03/29/25 20:14 Blood Pressure 129/61 03/29/25 20:14 Pulse Oximetry 97 03/29/25 20:14 Oxygen Delivery Method Room Air 03/29/25 20:14 Medications Administered Medications: Discontinued Medications Generic Name Dose Route Start Last Admin Trade Name Avq PRN Reason Stop Dose Admin Acetaminophen 1,000 mg 03/29/25 19:04 03/29/25 19:53 Acetaminophen 500 Mg Tablet PO 03/29/25 19:05 1,000 mg ONCE ONE Administration Sodium Chloride 1,000 mls @ 1,000 mls/hr 03/29/25 19:15 03/29/25 21:06 0.9 % Sodium Chloride 1000 Ml IV 03/29/25 20:14 Infused .Q1H TK Infusion Medical Decision Making MDM Narrative Medical decision making narrative: Very pleasant, intelligent 74-year-old male presenting to the ER today for right leg swelling, redness, bruising, and pain. She has a family history of DVT in her father, but does not have a personal history of DVT. First concern is that she may have had a postoperative blood clot. DVT ultrasound is obtained and is negative for any sign of DVT. It does show a complex fluid collection in the popliteal fossa. Differential for her leg swelling is broad. Certainly some postoperative swelling and redness and bruising can be a normal part of healing after surgery such as this. However, the patient did not have this degree of swelling or bruising after her other knee replacement. Concern here would be for potential postoperative infection or septic arthritis or infection of the hardware. We did perform laboratory workup which is generally reassuring. White count normal. CRP mildly elevated at 6.7. Procalcitonin is low. Blood sugar normal. Lactic acid normal. While the patient was here in the ER she did run a low-grade fever of 99.3. We made contact with our on-call orthopedic colleague, HARPREET Morgan. we discussed the patient's postoperative course, presenting symptoms, laboratory workup, imaging findings in detail. At this point, since patient has pretty good active range of motion he thinks the likelihood for a intra-articular joint infection is exceedingly low. He recommends discharge with outpatient follow-up with this orthopedic clinic on Monday. I discussed the situation in detail with the patient and her family. Questions were answered. We discussed that orthopedic recommendation is to discharge and follow-up outpatient. We also discussed that there is some concern that there could be involving infection here. At this point there is not an indication for an emergent trip to the OR and washout. Orthopedics does not want us to start antibiotics until a more definitive indication is reached. We discussed that it would be reasonable for us to hospitalize her for monitoring overnight, labs in the morning, orthopedic consult tomorrow. Based on Orthopedics recommendation it might also be reasonable for her to go home and have outpatient follow-up with orthopedic clinic in 36 hours, on Monday. After some discussion the, the patient she chose that she would rather go home. With that decision, careful return precautions reviewed with the patient, her , her daughter. If she does have fever, worsening pain, increasing swelling or redness, I think return to the ER would be indicated with plan for repeat lab workup, blood cultures, and admission for monitoring (with or without IV antibiotics based on her workup at the return visit). At this time she is not having symptoms of any other infection that would exp roderick her low-grade fever. Lab Data Labs: Lab Results 03/29/25 Range/Units 20:05 WBC 6.73 (4.50-11.00) K/uL RBC 3.36 L (4.00-5.20) m/uL Hgb 10.8 L (12.0-16.0) gm/dL Hct 31.9 L (33.0-51.0) % MCV 95 (80-100) fL MCH 32 (26-34) pg MCHC 34 (32-36) gm/dL RDW Coeff of Jimy 12.2 (11.5-15.5) % Plt Count 278 (140-440) K/uL Neut % (Auto) 59.6 (42.0-72.0) % Lymph % (Auto) 24.8 (20-44) % [place] % (Auto) 12.0 H (0.0-11.0) % Eos % (Auto) 3.0 (0.0-7.0) % Baso % (Auto) 0.6 (0.0-3.0) % Neut # (Auto) 4.01 (1.7-7.0) K/uL Lymph # (Auto) 1.67 (0.90-2.90) K/uL [place] # (Auto) 0.80 (0.00-0.90) K/UL Eos # (Auto) 0.20 (0.00-0.50) K/uL Baso # (Auto) 0.04 (0.00-0.30) K/uL Abs Immat Gran (auto) 0.00 (0.00-0.30) K/uL Imm/Tot Granulo (auto) 0.0 % INR 0.96 (0.91-1.10) Sodium 130 L (135-149) mmol/L Potassium 4.2 (3.6-5.1) mmol/L Chloride 98 (96-114) mmol/L Carbon Dioxide 27 (20-32) mmol/L Anion Gap 5 L (7-15) mEq/L BUN 11 (7-30) mg/dL Creatinine 0.5 (0.5-1.5) mg/dL Estimated Creat Clear 44.80 Estimated GFR 97 ml/min Glucose 114 (60-115) mg/dL Lactate 0.8 (0.5-1.9) mmol/L Calcium 8.9 (8.4-10.6) mg/dL Troponin I < 0.01 (0.01-0.04) ng/mL C-Reactive Protein 6.7 H (0.5-1.0) mg/dL Procalcitonin 0.06 (<0.50) ng/mL Imaging Data US Right lower extremity: Attestation: I have reviewed the pertinent imaging results. Radiologist's impression: IMPRESSION: 1. No right lower extremity DVT identified. 2. Complex popliteal cyst measuring up to 6.5 cm containing prominent debris. ECG Data Attestation: I personally reviewed and interpreted this ECG as follows: Interpretation: Normal sinus rhythm Rate 67 NJ interval 172. No delta waves. Normal QRS axis. Incomplete right bundle-branch block pattern. QRS duration 116 Nonspecific T-wave flattening. No ST segment elevation or depression QTC 390, QTC 412 Discharge Plan Discharge Clinical Impression: Acute pain of right lower extremity Patient Disposition: Home, Self-Care Instructions: Leg Pain (ED) Additional Instructions: As we discussed, it is very important for you to follow-up with the [facility] by Monday for recheck. You can call [phone] Monday morning at 8 to arrange a ER follow-up visit. If you notice worsening symptoms such as increasing pain or swelling in your leg or knee, fever or chills, weakness, chest pain or trouble breathing, or have any other problems, please return to the ER immediately. Do not wait to see Ortho on Monday if you get worse. Continue your current medications for now Prescriptions: No Action Beano 400 unit tablet 400 unit PO QDAY PRN calcium citrate 250 mg calcium tablet 250 mg PO TID glucosamine HCl 500 mg tablet 500 mg PO DAILY Rx Instructions: administer with a meal cholecalciferol (vitamin D3) 25 mcg (1,000 unit) capsule 25 mcg PO DAILY coenzyme Q10 [CoQ-10] 100 mg capsule 100 mg PO DAILY lactase [Dairy Relief] 3,000 unit tablet 9,000 unit PO QID PRN Rx Instructions: administer with meals and/or snacks rosuvastatin 10 mg tablet 10 mg PO HS acetaminophen 500 mg tablet 1,000 mg PO Q6H PRN Rx Instructions: NO MORE THAN 4000 MG/DAY multivitamin [Daily Multi-Vitamin] Tablet 1 tab PO DAILY sennosides-docusate sodium [Senna-S] 8.6-50 mg tablet 1 tab-cap PO BID PRN (Reason: constipation) Qty: 15 1RF Rx Instructions: Take while using narcotics. Hold for loose stools. aspirin 81 mg tablet,delayed release (DR/EC) 81 mg PO BID Qty: 60 0RF Rx Instructions: Take until gone for DVT prophylaxis tramadol 50 mg tablet 50 mg PO Q8H PRN (Reason: pain) Qty: 10 0RF ondansetron 4 mg tablet,disintegrating 4 mg PO Q8H PRN (Reason: nausea and vomiting) Qty: 15 1RF Follow Up/Referrals: Rehana Pandya MD [Primary Care Provider, Family Practice] Stand Alone Forms: [employer] Info Instructions
[2025-03-29] MEDS: ACETAMINOPHEN 500 MG TABLET 1000 MG PO (19:53)
[2025-03-29 20:14] VITALS: BP 129/61; RESP 18; TEMP 37.4; O2SAT 97
[2025-03-29 20:14] LABS: Hematocrit* 31.9 % (33.0-51.0); Hemoglobin* 10.8 gm/dL (12.0-16.0); Immature Granulocytes Abs Auto 0.00 K/uL (0.00-0.30); Immature Granulocytes Pct Auto 0.0 %; Lymphocytes Absolute Auto 1.67 K/uL (0.90-2.90); Mean Corpuscular HGB Conc 34 gm/dL (32-36); Mean Corpuscular Hemoglobin 32 pg (26-34); Mean Corpuscular Volume 95 fL (80-100); RDW Coefficient of Variation % 12.2 % (11.5-15.5); Red Blood Count* 3.36 m/uL (4.00-5.20); White Blood Count* 6.73 K/uL (4.50-11.00)
[2025-03-29 20:18] LABS: Lactate* 0.8 mmol/L (0.5-1.9)
[2025-03-29 20:27] LABS: Slide Review Reflex No
[2025-03-29 20:34] LABS: Chloride* 98 mmol/L (96-114); Sodium* 130 mmol/L (135-149)
[2025-03-29 20:35] LABS: Potassium* 4.2 mmol/L (3.6-5.1)
[2025-03-29 20:37] LABS: INR 0.96 (0.91-1.10); Prothrombin Time 13.6 Seconds
[2025-03-29 20:38] LABS: Anion Gap 5 mEq/L (7-15); Blood Urea Nitrogen* 11 mg/dL (7-30); Calcium* 8.9 mg/dL (8.4-10.6); Carbon Dioxide* 27 mmol/L (20-32); Creatinine* 0.5 mg/dL (0.5-1.5); Est. Creatinine Clearance* 44.80; Estimated Glomerular Filt Rate 97 ml/min; Glucose* 114 mg/dL (60-115)
[2025-03-29 20:55] LABS: Procalcitonin* 0.06 ng/mL (<0.50)
== END 2025-03-29 22:42 | disposition home or self-care (01) ==
PROVIDERS: Emergency Provider Emergency Medicine; PCP Family Medicine
DX: M79.661 Pain in right lower leg (principal); R60.0 Localized edema
CPT/HCPCS: 36415; 80048; 83605; 84145; 84484; 85025; 85610; 86140; 87040; 93005; 93971; 96360; 99284; A9270; J7030